=== PATIENT | female | born 1940 | race Caucasian/White ===

== ENCOUNTER 2019-07-01 03:45 | Inpatient (IN) | payer MEDICARE, OTHER, SELFPAY ==
[2019-07-01] VITALS (129 sets, daily range): BP systolic 80–151; BP diastolic 38–87; PULSE 86–139; RESP 4–33; TEMP 36.6–37.2; O2SAT 90–99; BMI 15.3
--- NOTE | 2019-07-01 03:59 | ED_ITS ---
Entered by Mela Ayala, acting as scribe for Arabella Stoddard HPI - SOB/Dyspnea General: Chief Complaint: Shortness of Breath/Dyspnea Stated Complaint: RESP DISTRESS Time Seen by Provider: 07/01/19 03:57 Source: patient and EMS Mode of arrival: EMS History of Present Illness: HPI Narrative: 78 y/o female presents to the ED with complaint of SOB and difficulty breathing. Pt told EMS she woke up suddenly and was unable to breathe. She has a home health aid that checks on her every so often since she lives at home alone. Pt normally wears 3L home O2. EMS reports mild wheezing and hx of COPD. MD elicited complaint: shortness of breath Pertinent past history: COPD Severity: similar to previous episodes Exacerbating factors: movement and talking Known history of: COPD Associated symptoms: Deny abdominal pain, chest pain, diaphoresis, dizziness, extremity pain, fever(s), nausea, orthopnea, palpitations, polydipsia, syncope or vomiting Treatment prior to arrival: oxygen Related Data: Home oxygen amount: 3 liters Review of Systems General: Reports: other (negative unless marked) Const: Denies: fever, chills, body aches, fatigue, malaise or diaphoresis Eyes: Denies: change in vision or blurry vision ENMT: Denies: throat pain, painful swallowing, hoarseness, ear pain, ear discharge, Change in hearing or nasal discharge Card: Denies: chest pain, palpitations, irregular heart rhythm, syncope, pre- syncope, shortness of breath on exertion or shortness of breath when lying down GI: Denies: abdominal pain, nausea, vomiting, vomiting blood, coffee grounds in vomit, diarrhea, constipation, cramping, blood in stool or black tarry stool : Denies: flank pain, painful urination, urinary frequency, urinary urgency, decreased urine ouput, urinary incontinence or blood in urine Musc: Denies: neck pain, back pain, extremity pain, extremity swelling, joint pain, joint swelling, joint warmth or joint stiffness Skin/Breast: Denies: rash, skin tenderness or yellow skin Neuro: Denies: headache, numbness in extremities, weakness in extremities, changes in sensation, lack of coordination, difficulty walking, dizziness, vertigo or confusion Endo: Denies: excessive thirst, tired all the time, cold intolerance, excessive sweating, flushing or hot flashes Hong/Lymph: Denies: easy bruising, easy bleeding, petechiae or enlarged lymph nodes All/Imm: Denies: hives, throat swelling, tongue swelling, facial swelling or acute wheezing PFSH ED PFSH: Social History Smoking and tobacco status: current every day smoker Physical Exam Const: EXAM LIMITATIONS: no altered mental status GENERAL APPEARANCE: cooperative, well kempt and well developed ORIENTATION/CONSCIOUSNESS: Yes awake HENMT: COMMON NORMALS: normocephalic, head/scalp atraumatic, hearing grossly normal bilaterally, external ears normal, EAC's normal, external nose normal and moist oral mucous membranes HEAD & SCALP: normal to inspection, normocephalic and atraumatic FACE & SINUS: normal facial exam and face symmetric NOSE: external nose normal and nares normal EXTERNAL EAR: Yes external ears normal EXTERNAL AUDITORY CANAL: EAC's normal MOUTH: oral and palatal mucosa normal and tongue normal Eye: COMMON NORMALS: PERRL, EOMs intact bilaterally, conjunctivae normal and no scleral icterus GENERAL EYE: normal appearance of both eyes and normal light reflex CONJUNCTIVA: Yes conjunctivae normal SCLERA: sclerae normal CORNEA: Yes corneas normal PUPIL: Yes PERRL DIRECT OPHTHALMOSCOPY: Yes normal light reflex Neck/C-Spine: COMMON NORMALS: full ROM, no lymphadenopathy, supple, no meningeal signs and no JVD GENERAL: Yes normal visual inspection and Yes trachea midline CERVICAL SPINE: Yes cervical ROM normal Chest: COMMONS NORMALS: inspection of chest normal and palpation of chest normal Cardio: COMMON NORMALS: no JVD, regular rate, regular rhythm, S1 normal heart sound, S2 normal heart sound, no gallops, no clicks, no murmurs and no rub JUGULAR VENOUS DISTENTION: no JVD RATE: regular rate RHYTHM: regular rhythm HEART SOUNDS: S1 normal and S2 normal GI: COMMON NORMALS: soft to palpation, non-tender, no hepatosplenomegaly and no masses INSPECTION: Yes normal to inspection PALPATION: Yes soft and Yes no hepatosplenomegaly : COMMON NORMALS: Yes no CVA tenderness BLADDER/KIDNEY EXAM: Yes no CVA tenderness Back/Pelvis: COMMON NORMALS: no CVA tenderness, thoracic and lumbar spine normal to inspection, no thoracic nor lumbar tenderness and thoraco-lumbar ROM normal Extremity: COMMON NORMALS: normal to inspection, full ROM, normal capillary refill, no joint enlargement, no clubbing, cyanosis or edema and no calf tenderness Neuro: COMMON NORMALS: CN's II-XII intact bilaterally, moves all extremities, no focal motor deficits and no sensory deficits noted MENINGEAL SIGNS: Yes no meningeal signs Psych: COMMON NORMALS: mental status grossly normal, thought process normal, cooperative, affect normal, speech normal and activity/motor behavior normal APPEARANCE: Yes well kempt SPEECH: Yes normal speech THOUGHT PROCESS: normal thought process Skin: COMMON NORMALS: no rashes or lesions noted, skin turgor normal, no jaundice, no petechiae and no mottling GENERAL SKIN EXAM: no rashes or lesions noted and turgor normal Course Vital Signs: Vital signs: Vital Signs Temperature 99.0 F 07/01/19 03:47 Pulse Rate 128 H 07/01/19 05:00 Respiratory Rate 24 H 07/01/19 03:47 Blood Pressure 151/79 07/01/19 03:47 Pulse Oximetry 99 07/01/19 05:00 MDM - SOB/Dyspnea MDM Narrative: Medical decision making narrative: The case was reviewed with Dr. Whittington and she will admit for combination of COPD and congestive heart failure exacerbations. Lab Data: Labs: Lab Results 07/01/19 07/01/19 07/01/19 Range/Units 03:30 03:30 03:30 WBC 7.7 (4.0-10.0) 10^3/ uL RBC 2.98 L (4.1-5.3) 10^6/u L Hgb 9.7 L (11.5-15.3) g/dL Hct 30.3 L (37.0-47.0) % MCV 101.7 H (81-99) fL MCH 32.6 (28.0-34.0) pg MCHC 32.0 (30.0-36.0) g/dL RDW 11.8 L (12.1-15.1) % Plt Count 238 (130-400) 10^3/c mm MPV 9.5 (7.4-10.4) fL Neut % (Auto) 83.7 % Lymph % (Auto) 7.0 % [place] % (Auto) 5.9 % Eos % (Auto) 2.8 % Baso % (Auto) 0.3 % Neut # (Auto) 6.5 (1.8-7.7) 10^3/u L Lymph # (Auto) 0.5 L (0.8-4.8) 10^3/u L [place] # (Auto) 0.5 (0.2-0.9) 10^3/u L Eos # (Auto) 0.2 (0.0-0.8) 10^3/u L Baso # (Auto) 0.0 (0.0-0.1) 10^3/u L Nucleated RBC % (a uto) 0 % Nucleated RBCs # 0.0 /100WBC PT 14.60 H (10.5-13.3) SECO NDS INR 1.30 H (0.8-1.2) Specimen Type Sample Site ABG pH (7.35-7.45) ABG pCO2 (35-45) mmHg ABG pO2 (80.0-100.0) mmH g ABG HCO3 (22-26) mmol/L ABG Base Excess (-2.0-2.0) mmol/ L Cedrick Test Hematocrit (37-47) % O2 Delivery Device O2 Liters/Min % Full Service Supervisor ID Sodium 139 (136-145) mmol/L Potassium 5.0 (3.5-5.1) mmol/L Chloride 99 (98-107) mmol/L Carbon Dioxide 30 H (22-29) mmol/L Anion Gap 15.0 (5-19) BUN 12 (8-23) mg/dL Creatinine 1.4 H (0.5-0.9) mg/dL Glucose 219 H (65-115) mg/dL Lactic Acid (0.5-2.2) mmol/L Calcium 9.5 (8.5-10.5) mg/dL Magnesium 1.4 L (1.7-2.3) mg/dL Total Bilirubin 0.3 (0.15-1.2) mg/dL AST 12 (0-32) U/L ALT 8 (0-33) U/L Alkaline Phosphata se 88 (35-105) IU/L Troponin T Baselin e (0-10) ng/mL Troponin T 120 Min gabriele (0-10) ng/mL Delta Troponin T (0-10) ABS# NT-Pro-B Natriuret Pep 1132 H (0-450) pg/mL Total Protein 8.0 (6.6-8.7) g/dL Albumin 3.8 (3.5-5.2) g/dL Globulin 4.2 (1.3-4.6) g/dL Influenza Type A A g (Negative) POC Influenza B Ag (Negative) 07/01/19 07/01/19 07/01/19 Range/Units 03:30 04:40 04:50 WBC (4.0-10.0) 10^3/ uL RBC (4.1-5.3) 10^6/u L Hgb (11.5-15.3) g/dL Hct (37.0-47.0) % MCV (81-99) fL MCH (28.0-34.0) pg MCHC (30.0-36.0) g/dL RDW (12.1-15.1) % Plt Count (130-400) 10^3/c mm MPV (7.4-10.4) fL Neut % (Auto) % Lymph % (Auto) % [place] % (Auto) % Eos % (Auto) % Baso % (Auto) % Neut # (Auto) (1.8-7.7) 10^3/u L Lymph # (Auto) (0.8-4.8) 10^3/u L [place] # (Auto) (0.2-0.9) 10^3/u L Eos # (Auto) (0.0-0.8) 10^3/u L Baso # (Auto) (0.0-0.1) 10^3/u L Nucleated RBC % (a uto) % Nucleated RBCs # /100WBC PT (10.5-13.3) SECO NDS INR (0.8-1.2) Specimen Type Arterial Sample Site Radial, right ABG pH 7.36 (7.35-7.45) ABG pCO2 50.2 H (35-45) mmHg ABG pO2 73.2 L (80.0-100.0) mmH g ABG HCO3 28.6 H (22-26) mmol/L ABG Base Excess 2.6 H (-2.0-2.0) mmol/ L Cedrick Test Pos Hematocrit 28.8 L (37-47) % O2 Delivery Device Nc O2 Liters/Min 3.0 % Full Service Supervisor ID [email or web address] Sodium (136-145) mmol/L Potassium (3.5-5.1) mmol/L Chloride (98-107) mmol/L Carbon Dioxide (22-29) mmol/L Anion Gap (5-19) BUN (8-23) mg/dL Creatinine (0.5-0.9) mg/dL Glucose (65-115) mg/dL Lactic Acid (0.5-2.2) mmol/L Calcium (8.5-10.5) mg/dL Magnesium (1.7-2.3) mg/dL Total Bilirubin (0.15-1.2) mg/dL AST (0-32) U/L ALT (0-33) U/L Alkaline Phosphata se (35-105) IU/L Troponin T Baselin e 16 H (0-10) ng/mL Troponin T 120 Min gabriele (0-10) ng/mL Delta Troponin T (0-10) ABS# NT-Pro-B Natriuret Pep (0-450) pg/mL Total Protein (6.6-8.7) g/dL Albumin (3.5-5.2) g/dL Globulin (1.3-4.6) g/dL Influenza Type A A g Negative (Negative) POC Influenza B Ag Negative (Negative) 07/01/19 07/01/19 Range/Units 04:59 05:42 WBC (4.0-10.0) 10^3/ uL RBC (4.1-5.3) 10^6/u L Hgb (11.5-15.3) g/dL Hct (37.0-47.0) % MCV (81-99) fL MCH (28.0-34.0) pg MCHC (30.0-36.0) g/dL RDW (12.1-15.1) % Plt Count (130-400) 10^3/c mm MPV (7.4-10.4) fL Neut % (Auto) % Lymph % (Auto) % [place]ham % (Auto) % Eos % (Auto) % Baso % (Auto) % Neut # (Auto) (1.8-7.7) 10^3/u L Lymph # (Auto) (0.8-4.8) 10^3/u L [place] # (Auto) (0.2-0.9) 10^3/u L Eos # (Auto) (0.0-0.8) 10^3/u L Baso # (Auto) (0.0-0.1) 10^3/u L Nucleated RBC % (a uto) % Nucleated RBCs # /100WBC PT (10.5-13.3) SECO NDS INR (0.8-1.2) Specimen Type Sample Site ABG pH (7.35-7.45) ABG pCO2 (35-45) mmHg ABG pO2 (80.0-100.0) mmH g ABG HCO3 (22-26) mmol/L ABG Base Excess (-2.0-2.0) mmol/ L Cedrick Test Hematocrit (37-47) % O2 Delivery Device O2 Liters/Min % Full Service Supervisor ID Sodium (136-145) mmol/L Potassium (3.5-5.1) mmol/L Chloride (98-107) mmol/L Carbon Dioxide (22-29) mmol/L Anion Gap (5-19) BUN (8-23) mg/dL Creatinine (0.5-0.9) mg/dL Glucose (65-115) mg/dL Lactic Acid 1.3 (0.5-2.2) mmol/L Calcium (8.5-10.5) mg/dL Magnesium (1.7-2.3) mg/dL Total Bilirubin (0.15-1.2) mg/dL AST (0-32) U/L ALT (0-33) U/L Alkaline Phosphata se (35-105) IU/L Troponin T Baselin e (0-10) ng/mL Troponin T 120 Min gabriele 14.32 H (0-10) ng/mL Delta Troponin T -1.68 L (0-10) ABS# NT-Pro-B Natriuret Pep (0-450) pg/mL Total Protein (6.6-8.7) g/dL Albumin (3.5-5.2) g/dL Globulin (1.3-4.6) g/dL Influenza Type A A g (Negative) POC Influenza B Ag (Negative) Discharge Plan Discharge Patient Disposition: Admitted As Inpatient Admit Provider: Yumiko Mooney Clinical Impression: Acute exacerbation of chronic obstructive airways disease Congestive heart failure Qualifiers: Heart failure type: unspecified Heart failure chronicity: acute on chronic Qualified Code(s): I50.9 - Heart failure, unspecified Condition: Stable Referrals: Hayden Horne MD [Family Provider] - Coding Level of Care Code ED Audit Tech for Chg Fwd Exam Comprehensive The documentation recorded by the Jamie lomas Ashley, accurately reflects the service I personally performed and the decisions made by Richi shea Eli N Jul 01, 2019 03:45
--- NOTE | 2019-07-01 04:02 | XR_ITS ---
WS: [id number] Portable AP upright chest, 07/01/2019 Clinical Data: cough Comparison: Portable chest, 05/02/2018. Findings: No nodules, masses or effusions are seen. The heart is normal. The pulmonary vascularity is not increased. No pneumonia or pneumothorax is seen. There is a slight dextroscoliosis. The aortic a rch and descending aorta show calcification and tortuosity. Monitor leads on the chest wall. There is a catheter overlying the upper central abdomen. XR/XR chest 1V portable [id number] Impression: Atherosclerosis.
[2019-07-01] MEDS: ondansetron 2 mg/ML SDV 2 mL 4 MG IVP (04:15)
[2019-07-01 04:18] LABS: Basophils % 0.3 %; Eosinophils # 0.2 10^3/uL (0.0-0.8); Eosinophils % 2.8 %; Hematocrit 30.3 % (37.0-47.0); Hemoglobin 9.7 g/dL (11.5-15.3); Lymphocytes # 0.5 10^3/uL (0.8-4.8); Mean Corpuscular Hemoglobin 32.6 pg (28.0-34.0); Mean Corpuscular Volume 101.7 fL (81-99); Mean Platelet Volume 9.5 fL (7.4-10.4); Monocytes # 0.5 10^3/uL (0.2-0.9); Monocytes % 5.9 %; Neutrophils # 6.5 10^3/uL (1.8-7.7); Neutrophils % 83.7 %; Nucleated Red Blood Cells % 0 %; Platelet Count 238 10^3/cmm (130-400); Red Blood Count 2.98 10^6/uL (4.1-5.3); Red Cell Distribution Width 11.8 % (12.1-15.1); White Blood Count 7.7 10^3/uL (4.0-10.0)
[2019-07-01 04:32] LABS: Troponin(5th) Baseline 16 ng/mL (0-10)
[2019-07-01 04:40] LABS: Alanine Aminotransferase 8 U/L (0-33); Albumin Level 3.8 g/dL (3.5-5.2); Alkaline Phosphatase 88 IU/L (35-105); Aspartate Amino Transferase 12 U/L (0-32); Blood Urea Nitrogen 12 mg/dL (8-23); Calcium 9.5 mg/dL (8.5-10.5); Carbon Dioxide 30 mmol/L (22-29); Chloride 99 mmol/L (98-107); Globulin 4.2 g/dL (1.3-4.6); Glucose 219 mg/dL (65-115); Magnesium 1.4 mg/dL (1.7-2.3); NT Pro B Type Natriuretic Pept 1132 pg/mL (0-450); Sodium 139 mmol/L (136-145); Total Bilirubin 0.3 mg/dL (0.15-1.2)
[2019-07-01 04:57] LABS: ABG PCO2 50.2 mmHg (35-45); ABG PH Result 7.36 (7.35-7.45); Arterial Blood Gas Hematocrit 28.8 % (37-47); Base Excess ABG 2.6 mmol/L (-2.0-2.0); Blood Gas Allen Test Pos; Blood Gas Sample Site Radial, right; Blood Gas Sample Type Arterial; HCO3 ABG 28.6 mmol/L (22-26); Oxygen Device NC; PO2 ABG 73.2 mmHg (80.0-100.0)
[2019-07-01 05:19] LABS: Lactic Sepsis W/Reflex 1.3 mmol/L (0.5-2.2)
--- NOTE | 2019-07-01 06:03 | ECG_ITS ---
Measurements Intervals [place] Rate: 118 P: 82 PA: 169 QRS: 74 QRSD: 88 T: 80 QT: 314 QTc: 441 SINUS TACHYCARDIA WITH OCCASIONAL ECTOPIC PREMATURE COMPLEXES ABNORMAL RHYTHM ECG Compared to ECG 05/02/2018 13:28:49 Myocardial infarct finding no longer present Electronically Signed On 07-01-2019 21:25:26 SEED AND FERTILIZER SPECIALIST by Keerthi Jensen M.D. [id number]
[2019-07-01] MEDS: FUROsemide 10 mg/mL SDV 4mL 40 MG IVP (06:15)
[2019-07-01] MEDS: magnesium sulfate premix 2 GM/50 ML PIGGYBACK IV (06:15)
[2019-07-01] MEDS: nitroglycerin 1 gm/inch oint Pkt 1 INCH TOPICAL (06:20)
[2019-07-01 06:29] LABS: Influenza A by IFA Negative (Negative); Influenza B by IFA Negative (Negative)
[2019-07-01 06:36] LABS: Troponin 5 2HR 14.32 ng/mL (0-10)
[2019-07-01 06:38] LABS: Troponin 5 2HR Delta -1.68 ABS# (0-10)
--- NOTE | 2019-07-01 09:48 | P.HP_ITS ---
Providers/Chief Complaint Admitting Physician: Leatha Salmon MD Chief Complaint: Worsening SOB History of Present Illness Shanita Canales is a 78 year old female with PMHx of Oxygen-dependent COPD, HTN, Chronic systolic CHF, CKD stage 2-3, IDDM type II, Pancreatic insufficiency, Chronic smoker, presents for evaluation of acutely worsening SOB x 2 days along with increased productive cough with clear sputum. She has a baseline oxygen r equirement of 3 L NC which she reports compliance with. She is a chronic smoker though has cut down considerably to 1 cig/day. She denies fever/chills, sick contacts, nausea/vomiting, chest pain/tightness. She has chronic abdominal pain and diarrhea which she attributes to hx of gallstone pancreatitis with intervention and is on pancreatic enzymes. She has a prior hx of intubation in 2018. Workup in ED shows no leukocytosis, mild anemia with hg of 9.7, Cr of 1.4, BG of 219, ABG showing mild hypercapnia and hypoxia, BNP-1132, Mg-1.4, lactic acid-1.3. CXR report is pending but per my review is unremarkable. She received IV magnesium replacement, 40 mg of IV Lasix, NS while in ED. Despite elevated BNP she does not appear clinically fluid overloaded though this could also be secondary to slight increase in renal function as well. She appears slightly dehydrated during my assessment in ED, is tachycardic and on 2 L NC with saturation of 97%, in no apparent distress, normotensive. She is being admitted for further management of acute COPD exacerbation and mild dehydration. Review of Systems Const: Denies: fever, chills, change in appetite or fatigue Eyes: Denies: change in vision ENMT: Denies: painful swallowing or dry mouth Card: Reports: shortness of breath on exertion; Denies: chest pain, swelling of feet/ankles or lightheadedness Resp: Reports: productive cough (clear sputum, scant); Denies: shortness of breath or coughing up blood GI: Reports: abdominal pain (chronic) and diarrhea (chronic); Denies: nausea, vomiting, vomiting blood or blood in stool : Reports: painful urination and urinary frequency; Denies: difficulty urinating Musc: Denies: back pain Skin/Breast: Denies: rash Neuro: Denies: numbness in extremities, weakness in extremities, difficulty walking or frequent falls Psych: Denies: anxiety Medications/Allergies Home Medications Medication Instructions Recorded Confirmed Last Taken Type Novolog PenFill U-100 Insulin See Rx Instructions .ROUTE .COMPLEX 07/01/19 07/01/19 Unknown History albuterol sulfate [ProAir HFA] 1 - 2 puff INHALATION Q4H PRN 07/01/19 07/01/19 Unknown History amlodipine [Norvasc] 10 mg PO DAILY 07/01/19 07/01/19 06/30/19 History buspirone 10 mg PO TID PRN 07/01/19 07/01/19 06/30/19 History carvedilol 6.25 mg PO BID 07/01/19 07/01/19 06/30/19 History cholecalciferol (vitamin D3) 50,000 unit PO Q7D 07/01/19 07/01/19 Unknown History clopidogrel [Plavix] 75 mg PO DAILY 07/01/19 07/01/19 06/30/19 History hydrocodone-acetaminophen [[place]] 1 tab PO QID PRN 07/01/19 07/01/19 06/30/19 History insulin glargine [Lantus Solostar 6 unit SUBCUT QPM 07/01/19 07/01/19 Unknown History U-100 Insulin] [id number] [Pancreaze] 1 cap PO TID 07/01/19 07/01/19 Unknown History loperamide [Imodium A-D] 2 mg PO DIRECTED 07/01/19 07/01/19 Unknown History losartan 100 mg PO DAILY 07/01/19 07/01/19 Unknown History mirtazapine 30 mg PO BEDTIME 07/01/19 07/01/19 06/30/19 History Allergies Allergy/AdvReac Type Severity Reaction Status Date / Time HATTIE Inhibitors Allergy Mild Unknown Verified 07/01/19 03:59 Penicillins Allergy ALGY-Swell Verified 07/01/19 03:59 Lip/Tongue/Throat PFSH Acute PFSH: Medical History Chronic anemia Chronic back pain CKD (chronic kidney disease) stage 2, GFR 60-89 ml/min Congestive heart failure COPD (chronic obstructive pulmonary disease) oxygen dependent, 3 L at baseline HTN (hypertension) Pancreatic insufficiency Surgical History History of tonsillectomy Hx of appendectomy Status post surgical amputation of finger of left hand Family History Mother Stroke Social History (Updated 07/01/19 @ 09:52 by Leatha Salmon MD) Smoking and tobacco status: current every day smoker cigarettes Number of cigarettes per day: 1-5 Alcohol intake: never Substance/Drug Use: never Lives independently: Yes Vitals/I&O/Wt Last Vital Signs Temp 99.0 F 07/01/19 08:25 Pulse 113 H 07/01/19 08:53 Resp 33 H 07/01/19 08:35 BP 111/62 07/01/19 08:35 Pulse Ox 93 07/01/19 08:53 Weight last 48 hrs Weight 43.091 kg Physical Exam Const: COMMON NORMALS: no apparent distress and oriented x3 GENERAL APPEARANCE: cooperative and comfortable ORIENTATION/CONSCIOUSNESS: Yes awake HENMT: COMMON NORMALS: normocephalic, head/scalp atraumatic, hearing grossly normal bilaterally and moist oral mucous membranes HEAD & SCALP: normocephalic and atraumatic Eye: COMMON NORMALS: PERRL, EOMs intact bilaterally and conjunctivae normal CONJUNCTIVA: Yes conjunctivae normal PUPIL: Yes PERRL Neck/C-Spine: COMMON NORMALS: full ROM GENERAL: Yes normal visual inspection and Yes trachea midline Resp: COMMON NORMALS: normal respiratory effort, no retractions, no use of accessory muscles and clear to auscultation bilaterally EFFORT & INSPECTION: Yes able to speak in complete sentences, Yes symmetric chest movement and No tachypneic AUSCULTATION: clear to auscultation bilaterally Cardio: COMMON NORMALS: regular rate, regular rhythm, S1 normal heart sound, S2 normal heart sound and no murmurs RATE: regular rate RHYTHM: regular rhythm HEART SOUNDS: S1 normal and S2 normal GI: COMMON NORMALS: normal to inspection, nondistended, normoactive bowel sounds, soft to palpation and non-tender PALPATION: Yes soft Extremity: COMMON NORMALS: normal to inspection, full ROM and no clubbing, cyanosis or edema; negative for no pedal edema Neuro: COMMON NORMALS: oriented x3, moves all extremities, no focal motor deficits, no sensory deficits noted and gait normal Psych: COMMON NORMALS: mental status grossly normal, thought process normal, cooperative, affect normal and speech normal SPEECH: Yes normal speech THOUGHT PROCESS: normal thought process Skin: COMMON NORMALS: no rashes or lesions noted, no jaundice, no petechiae and no mottling GENERAL SKIN EXAM: no rashes or lesions noted Data : 07/01/19 03:30 07/01/19 03:30 Micro: Microbiology 07/01/19 04:54 Blood Culture - Preliminary Blood SPECIMEN COLLECTED 07/01/19 04:59 Blood Culture - Preliminary Blood SPECIMEN COLLECTED A&P Assessment and plan (1) Acute exacerbation of chronic obstructive airways disease: -mild acute COPD exacerbation as evidenced by increased productive cough, worsening SOB -baseline oxygen dependent, 3 L -noted ABG with mild hypercapnia and hypoxia -monitor respiratory status -no leukocytosis, afebrile, lactic acid wnl (1.3) -Neb treatments, will use Xopenex due to tachycardia -supplemental oxygen as needed -empiric doxycycline -CXR done, report pending, appears unremarkable per my review -monitor vital signs Status: Acute Code(s): J44.1 - Chronic obstructive pulmonary disease with (acute) exacerbation (2) Congestive heart failure: -noted BNP elevation (1132) but no clinical evidence of fluid overload (no increased LE edema or abdominal distention, no mirtha effusion or increased pulmonary vascular congestion on CXR) -Echo (03/2018): EF=40%, mild concentric LVH, diffuse hypokinesis, trace TR -received 40 mg dose of IV Lasix in ED, would hold off on further diuresis at this time Status: Acute Qualifiers: Heart failure chronicity: chronic Heart failure type: systolic Qualified Code(s): I50.22 - Chronic systolic (congestive) heart failure Code(s): I50.9 - Heart failure, unspecified (3) CKD (chronic kidney disease) stage 2, GFR 60-89 ml/min: -has known CKD stage 2-3, baseline Cr is around 1 but has been as high as 2.8 in the past -continue to monitor renal function -seems a little dehydrated clinically so will give 500 mL NS bolus x 1 and monitor response -avoid nephrotoxins, renally dose meds -hold losartan pending improved Cr Status: Acute Code(s): N18.2 - Chronic kidney disease, stage 2 (mild) (4) Chronic anemia: -hx of chronic macrocytic anemia; baseline Hg is around 10-11 -check folate, B12 -continue to monitor H/H Status: Acute Code(s): D64.9 - Anemia, unspecified (5) HTN (hypertension): -has known hx of HTN -hemodynamically stable currently -continue to monitor vital signs -resume oral antihypertensives Status: Acute Qualifiers: Hypertension type: essential hypertension Qualified Code(s): I10 - Essential (primary) hypertension Code(s): I10 - Essential (primary) hypertension (6) Chronic back pain: -has chronic back pain secondary to OA -resume pain meds Status: Acute Qualifiers: Back pain location: low back pain Back pain laterality: unspecified Sciatica presence: unspecified whether sciatica present Qualified Code(s): M54.5 - Low back pain; G89.29 - Other chronic pain Code(s): M54.9 - Dorsalgia, unspecified; G89.29 - Other chronic pain Additional A&P Information -Pancreatic insufficiency, has hx of gallstone pancreatitis s/p stenting; resume pancreatic enzymes; had chronic abdominal pain and diarrhea as a result -chronic smoker; down to 1 cig/day -IDDM type II; check A1c, accucheks, ISS, low dose Lantus; hypoglycemia precautions, consistent carb diet -DVT ppx with heparin -fall precautions -Dispo: home with continued HH services ([facility]) -Code status: DNR/DNI -ICU admission as floor overflow Attestations Medical Necessity Statement*: Shanita Canales's hospital stay will require greater than 2 midnights for management of acute COPD exacerbation and mild dehydration. Time Spent in Patient Care: Greater than 35 minutes (>than 50% of time spent in counselling and/or direct pt care on unit) . Coding Level of Care Code Acute Dispensary Technician for Yaz Fwnaila Diagnoses Acute exacerbation of chronic obstructive airways disease J44.1 Congestive heart failure I50.22 Heart failure chronicity: chronic Heart failure type: systolic CKD (chronic kidney disease) stage 2, GFR 60-89 ml/min N18.2 Chronic anemia D64.9 HTN (hypertension) I10 Hypertension type: essential hypertension Chronic back pain M54.5; G89.29 Back pain location: low back pain Back pain laterality: unspecified Sciatica presence: unspecified whether sciatica present
--- NOTE | 2019-07-01 10:03 | ECG_ITS ---
Measurements Intervals [place] Rate: 122 P: 78 MO: 165 QRS: 65 QRSD: 90 T: 74 QT: 315 QTc: 449 SINUS TACHYCARDIA WITH OCCASIONAL ECTOPIC PREMATURE COMPLEXES SEPTAL MYOCARDIAL INFARCTION [40+ ms Q WAVE IN V1/V2], OF INDETERMINATE AGE Compared to ECG 05/02/2018 13:28:49 No significant changes Electronically Signed On 07-02-2019 11:16:15 COPY EDITOR by Keerthi Jensen M.D. [id number]
[2019-07-01 10:09] LABS: Troponin 5 6HR 16.33 ng/mL (0-10); Troponin 5 6HR Delta 0.33 ng/L (0-12)
[2019-07-01] MEDS: sodium chloride 0.9% 500 ML IV (10:13)
[2019-07-01] MEDS: amlodipine 10 mg Tablet PO (10:13)
[2019-07-01] MEDS: predniSONE 20 mg Tablet 40 MG PO (10:14)
[2019-07-01] MEDS: clopidogrel 75 mg Tablet PO (10:14)
[2019-07-01] MEDS: HYDROcodone-acetaminophen 10-325 mg Tablet 1 TAB PO ×3 (10:14→21:24)
[2019-07-01] MEDS: heparin 5,000 unit/mL INJ 1 mL 5000 UNIT SUBCUT ×2 (10:14→21:25)
--- NOTE | 2019-07-01 11:27 | PC.NURSE ---
Blood glucose checked prior to lunch. Resulted as 470. Physician notified at this time, verbal order to give the 14 units per protocol.
[2019-07-01] MEDS: lipase-protease-amylase Capsule 1 EACH PO ×2 (11:38→17:40)
[2019-07-01 12:36] LABS: Glucose Point of Care 470 mg/dL (70-110)
[2019-07-01] MEDS: BuSPIRONE 10 mg Tablet PO ×2 (14:16→21:24)
[2019-07-01 15:02] LABS: Glucose Point of Care 406 mg/dL (70-110)
[2019-07-01 16:12] LABS: Bilirubin Urine Neg (NEGATIVE); Blood Urine Neg (Negative); Glucose Urine UA 4+ (Normal); Ketones Urine Negative (Negative); Leukocyte Esterase Urine Negative (Negative); Nitrate Urine Negative (Negative); Protein Urine Neg (Negative); Urine Appearance Clear (CLEAR); Urine Color Straw (Yellow); Urobilinogen Urine Norm (Negative); pH Urine 5 (5-7)
[2019-07-01] MEDS: guaiFENesin 600 mg Tablet PO (17:18)
[2019-07-01] MEDS: carvedilol 6.25 mg Tablet PO (17:18)
[2019-07-01] MEDS: doxycycline 100 mg Tablet PO (17:18)
[2019-07-01 17:19] LABS: Glucose Point of Care 385 mg/dL (70-110)
[2019-07-01 17:49] LABS: Add Urine Culture? No; Bacteria Urine TRACE; Squamous Epithelial Cell Urine 0-4 (0-5)
[2019-07-01] MEDS: mirtazapine 30 mg Tablet PO (21:24)
[2019-07-01] MEDS: insulin glargine 100 units/1 mL 5 UNIT SUBCUT (21:24)
[2019-07-02] VITALS (27 sets, daily range): BP systolic 126–168; BP diastolic 55–77; PULSE 76–125; RESP 2–31; TEMP 36.6–36.7; O2SAT 86–100
[2019-07-02 05:14] LABS: Hematocrit 27.7 % (37.0-47.0); Lymphocytes # 0.7 10^3/uL (0.8-4.8); Lymphocytes % 9.7 %; Mean Corpuscular HGB Conc 32.5 g/dL (30.0-36.0); Mean Corpuscular Hemoglobin 33.3 pg (28.0-34.0); Mean Corpuscular Volume 102.6 fL (81-99); Mean Platelet Volume 9.8 fL (7.4-10.4); Monocytes # 0.5 10^3/uL (0.2-0.9); Monocytes % 6.5 %; Neutrophils # 6.4 10^3/uL (1.8-7.7); Neutrophils % 83.3 %; Nucleated Red Blood Cells % 0 %; Platelet Count 221 10^3/cmm (130-400); Red Cell Distribution Width 11.7 % (12.1-15.1); White Blood Count 7.7 10^3/uL (4.0-10.0)
[2019-07-02 05:35] LABS: Anion Gap 12.9 (5-19); Blood Urea Nitrogen 25 mg/dL (8-23); Calcium 8.9 mg/dL (8.5-10.5); Carbon Dioxide 30 mmol/L (22-29); Chloride 97 mmol/L (98-107); Glucose 185 mg/dL (65-115); Osmolality Calculated 282 mOsm/kg (285-295); Potassium 4.9 mmol/L (3.5-5.1); Sodium 135 mmol/L (136-145)
[2019-07-02 05:50] LABS: Vitamin B12 715 pg/mL (232-1245)
[2019-07-02 06:08] LABS: Estmated Average Glucose 154
[2019-07-02 07:37] LABS: Folate Level 6.1 ng/mL (4.8-37.3)
[2019-07-02] MEDS: doxycycline 100 mg Tablet PO ×2 (08:22→18:15)
[2019-07-02] MEDS: guaiFENesin 600 mg Tablet PO ×2 (08:22→18:15)
[2019-07-02] MEDS: HYDROcodone-acetaminophen 10-325 mg Tablet 1 TAB PO ×3 (08:23→23:27)
[2019-07-02] MEDS: carvedilol 6.25 mg Tablet PO ×2 (08:24→18:15)
[2019-07-02] MEDS: BuSPIRONE 10 mg Tablet PO ×3 (08:24→21:20)
[2019-07-02] MEDS: amlodipine 10 mg Tablet PO (08:24)
[2019-07-02] MEDS: clopidogrel 75 mg Tablet PO (08:24)
[2019-07-02] MEDS: lipase-protease-amylase Capsule 1 EACH PO ×3 (08:41→18:33)
[2019-07-02] MEDS: heparin 5,000 unit/mL INJ 1 mL 5000 UNIT SUBCUT ×2 (09:38→21:22)
--- NOTE | 2019-07-02 11:00 | PC.CHAP ---
Pastoral Care Encounter/Spiritual Assessment Type of Contact [] Declined private investigator surveillance visit [] Patient/Family/Request visit [] Outpatient visit [] Follow-up visit [] Physician referral [] Code/Alert [x] Routine visit [] Staff referral [] Actively dying [x] Patient sleeping [] Family support [] [] Out of room [] Palliative care [] [] Receiving care in room [] Pre-surgical visit [] Trauma [] Long length of stay [x] ICU visit [] Other: Relational/Emotional Strength [] Patient feels connected with others/family/visitors/staff [] Distress [] Loneliness/isolation [] Abandonment Spirituality of Patient [] Person of Rosario [] Attends Orthodox of their Rosario [] Believes in Prayer [] Reads Bible or Taoism materials [] There are Spiritual issues to be addressed Associate Veterinarian Interventions [] Prayer [] Active listening [] Non-anxious presence [] Spiritual/emotional support [] Crisis/trauma care [] Spiritual counseling [] Bereavement support [] Provided bereavement packet [] Provided Bible/devotional materials [] Provided toy/stuffed animal, coloring book to patient or family member [] Provided Communion [] Anointing/[place] [] Salvation [x] Completed spiritual assessment [] Other: Impact on Illness or Injury [] Angry [] Fearful [] Anxious [] Often cries [] Exhaustion [] Unable to work [] Unable to attend methodist [] Unable to walk/stand [] Unable to read [] Unable to drive [] Unable to eat/drink [] Unable to sleep [] Unable to be with family [] Patient intubated [] Other: Summary patient resting well . [place] did not disturb. Time spent with patient
--- NOTE | 2019-07-02 12:01 | P.PN_ITS ---
Subjective Subjective: Interval history: Patient seen and examined, family at bedside, seems to be in much better spirits, reports feeling better today. Has been on 3 L with saturation above 95%, will wean down to 2 L and monitor. No complaints currently. No acute overnight events reported. Has been able to get up and use a bedside commode without difficulty. [facility] Medications: Reviewed: Yes Medication Review Details: Active Medications Generic Name Dose Route Start Last Admin Trade Name Freq PRN Reason Stop Dose Admin Acetaminophen 650 mg 07/01/19 08:34 Tylenol PO Q6H PRN Mild/Mod Pain Or Temp >/= 101 Hydrocodone Bitart /Acetaminophen 1 tab 07/01/19 09:53 07/02/19 08:23 [place] 10-325 Mg PO 1 tab Q6H PRN Administration MODERATE PAIN Al Hydrox/Mg [place] x/Simethicone 15 ml 07/01/19 09:53 Maalox PO Q6H PRN INDIGESTION Amlodipine Besylat e 10 mg 07/01/19 10:00 07/02/19 08:24 Norvasc PO 10 mg DAILY IDALIA Administration Lipase/Protease/Am ylase 1 each 07/01/19 12:00 07/02/19 11:55 Zenpep PO 1 each TIDWM IDALIA Administration Benzocaine 1 each 07/01/19 09:59 Cepacol MUCOUS MEM Q2H PRN SORE THROAT Buspirone HCl 10 mg 07/01/19 15:00 07/02/19 08:24 Buspar PO 10 mg TID IDALIA Administration Carvedilol 6.25 mg 07/01/19 18:00 07/02/19 08:24 Coreg PO 6.25 mg BID IDALIA Administration Clopidogrel Bisulf ate 75 mg 07/01/19 10:00 07/02/19 08:24 Plavix PO 75 mg DAILY IDALIA Administration Dextrose 25 ml 07/01/19 09:53 D50w IVP ONCE PRN hypoglycemia prot ocol Protocol Dextrose 50 ml 07/01/19 09:53 D50w IVP PRN PRN hypoglycemia prot ocol Protocol Doxycycline Monohy drate 100 mg 07/01/19 18:00 07/02/19 08:22 Vibramycin PO 100 mg BID IDALIA Administration Protocol Glucagon 1 mg 07/01/19 09:53 Glucagen IM ONCE PRN Adult Acute Hypog lycemia Prot. Protocol Guaifenesin 600 mg 07/01/19 18:00 07/02/19 08:22 Mucinex PO 600 mg BID IDALIA Administration Heparin Sodium (Be ef Lung) 5,000 unit 07/01/19 10:00 07/02/19 09:38 Heparin SUBCUT 5,000 unit Q12H IDALIA Administration Dextrose 500 mls @ 100 mls /hr 07/01/19 09:53 D5w IV ONCE PRN Adult Acute Hypog lycemia Prot Protocol Insulin Aspart 0 unit 07/01/19 12:00 07/02/19 11:53 Novolog SUBCUT 6 unit WM&BEDTIME IDALIA Administration Protocol Insulin Glargine 5 unit 07/01/19 21:00 07/01/19 21:24 Lantus SUBCUT 5 unit BEDTIME IDALIA Administration Levalbuterol HCl 1.25 mg 07/01/19 09:58 Xopenex INHALATION Q4H.RESPIRATORY P RN SHORTNESS OF VICK TH Loperamide HCl 2 mg 07/01/19 09:53 Imodium Capsule PO QID PRN DIARRHEA Mirtazapine 30 mg 07/01/19 21:00 07/01/19 21:24 Remeron PO 30 mg BEDTIME IDALIA Administration Morphine Sulfate 2 mg 07/01/19 09:53 Morphine IVP Q4H PRN SEVERE PAIN Ondansetron HCl 4 mg 07/01/19 08:34 Zofran IVP Q6H PRN NAUSEA AND VOMITI NG HATTIE Inhibitors Allergy (Mild, Verified 07/01/19 03:59) Unknown Penicillins Allergy (Verified 07/01/19 03:59) ALGY-Swell Lip/Tongue/Throat Vitals/I&O/Wt Last Vital Signs Temp 97.9 F 07/02/19 04:00 Pulse 96 07/02/19 10:20 Resp 20 H 07/02/19 10:20 BP 158/68 07/02/19 10:00 Pulse Ox 90 07/02/19 10:20 07/01/19 07/02/19 07/02/19 22:59 06:59 14:59 Intake Total 540 / 780 Balance 540 / 780 Weight last 48 hrs Weight 42.229 kg Weight 43.091 kg Physical Exam Const: COMMON NORMALS: no apparent distress and oriented x3 GENERAL APPEARANCE: cooperative and comfortable ORIENTATION/CONSCIOUSNESS: Yes awake HENMT: COMMON NORMALS: normocephalic, head/scalp atraumatic, hearing grossly normal bilaterally and moist oral mucous membranes HEAD & SCALP: normocephalic and atraumatic Eye: COMMON NORMALS: PERRL, EOMs intact bilaterally and conjunctivae normal CONJUNCTIVA: Yes conjunctivae normal PUPIL: Yes PERRL Neck/C-Spine: COMMON NORMALS: full ROM GENERAL: Yes normal visual inspection and Yes trachea midline Resp: COMMON NORMALS: normal respiratory effort, no retractions, no use of accessory muscles and clear to auscultation bilaterally EFFORT & INSPECTION: Yes able to speak in complete sentences, Yes symmetric chest movement and No tachypneic AUSCULTATION: clear to auscultation bilaterally and diminished lung sounds bilateral Cardio: COMMON NORMALS: regular rate, regular rhythm, S1 normal heart sound, S2 normal heart sound and no murmurs RATE: regular rate RHYTHM: regular rhythm HEART SOUNDS: S1 normal and S2 normal GI: COMMON NORMALS: normal to inspection, nondistended, normoactive bowel sounds, soft to palpation and non-tender PALPATION: Yes soft Extremity: COMMON NORMALS: normal to inspection, full ROM and no clubbing, cyanosis or edema; negative for no pedal edema Neuro: COMMON NORMALS: oriented x3, moves all extremities, no focal motor deficits, no sensory deficits noted and gait normal Psych: COMMON NORMALS: mental status grossly normal, thought process normal, cooperative, affect normal and speech normal SPEECH: Yes normal speech THOUGHT PROCESS: normal thought process Skin: COMMON NORMALS: no rashes or lesions noted, no jaundice, no petechiae and no mottling GENERAL SKIN EXAM: no rashes or lesions noted Data : 07/02/19 04:30 07/02/19 04:30 Micro: Microbiology 07/01/19 04:54 Blood Culture - Preliminary Blood NEGATIVE TO DATE 07/01/19 04:59 Blood Culture - Preliminary Blood NEGATIVE TO DATE A&P Assessment and plan (1) Acute exacerbation of chronic obstructive airways disease: -mild acute COPD exacerbation as evidenced by increased productive cough, worsening SOB -baseline oxygen dependent, 3 L -noted ABG with mild hypercapnia and hypoxia -monitor respiratory status -no leukocytosis, afebrile, lactic acid wnl (1.3) -Neb treatments, will use Xopenex due to tachycardia -supplemental oxygen as needed -empiric doxycycline -CXR appears unremarkable per my review -VSS; continue to monitor Status: Acute Code(s): J44.1 - Chronic obstructive pulmonary disease with (acute) exacerbation (2) Congestive heart failure: -noted BNP elevation (1132) but no clinical evidence of fluid overload (no increased LE edema or abdominal distention, no mirtha effusion or increased pulmonary vascular congestion on CXR) -Echo (03/2018): EF=40%, mild concentric LVH, diffuse hypokinesis, trace TR -received 40 mg dose of IV Lasix in ED, would hold off on further diuresis at this time Status: Acute Qualifiers: Heart failure chronicity: chronic Heart failure type: systolic Qualified Code(s): I50.22 - Chronic systolic (congestive) heart failure Code(s): I50.9 - Heart failure, unspecified (3) CKD (chronic kidney disease) stage 2, GFR 60-89 ml/min: -has known CKD stage 2-3, baseline Cr is around 1 but has been as high as 2.8 in the past; now with superimposed QUEENIE -continue to monitor renal function; noted increase in BUN and Cr, start on gentle IVF hydration -seems a little dehydrated clinically so gave 500 mL NS bolus -avoid nephrotoxins, renally dose meds -hold losartan pending improved Cr Status: Acute Code(s): N18.2 - Chronic kidney disease, stage 2 (mild) (4) Chronic anemia: -hx of chronic macrocytic anemia; baseline Hg is around 10-11 -check folate, B12 -continue to monitor H/H Status: Acute Code(s): D64.9 - Anemia, unspecified (5) HTN (hypertension): -has known hx of HTN -hemodynamically stable currently -continue to monitor vital signs -continue oral antihypertensives Status: Acute Qualifiers: Hypertension type: essential hypertension Qualified Code(s): I10 - Essential (primary) hypertension Code(s): I10 - Essential (primary) hypertension (6) Chronic back pain: -has chronic back pain secondary to OA -resume pain meds Status: Acute Qualifiers: Back pain location: low back pain Back pain laterality: unspecified Sciatica presence: unspecified whether sciatica present Qualified Code(s): M54.5 - Low back pain; G89.29 - Other chronic pain Code(s): M54.9 - Dorsalgia, unspecified; G89.29 - Other chronic pain Additional A&P Information -Pancreatic insufficiency, has hx of gallstone pancreatitis s/p stenting; continue pancreatic enzymes; had chronic abdominal pain and diarrhea as a result -chronic smoker; down to 1 cig/day -IDDM type II; A1c-7.0, accucheks, ISS, low dose Lantus; hypoglycemia precautions, consistent carb diet -DVT ppx with heparin -fall precautions -Dispo: home with continued HH services ([place]) -Code status: DNR/DNI -transfer to floor once bed available Attestations Medical Necessity Statement*: Patient requires hospitalization for continued management of acute COPD exacerbation and QUEENIE. Time Spent in Patient Care: 16 - 35 minutes (>than 50% of time spent in counselling and/or direct pt care on unit) . 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
[2019-07-02] MEDS: morphine 4 mg/mL SDV 1 mL 2 MG IVP ×2 (14:08→21:21)
--- NOTE | 2019-07-02 15:45 | PC.NURSE ---
resting quietly. resp. unlabored. appears to be sleeping.
--- NOTE | 2019-07-02 16:53 | PC.RESP ---
Patient given Pulmonary Rehab/Smoking Cessation information.
--- NOTE | 2019-07-02 18:44 | PC.NURSE ---
C/O ABD. PAIN UNLIKE SHE HAD HAD IN THE PAST, THEN HAD SMALL FIRM B.M. x 2.
--- NOTE | 2019-07-02 18:45 | PC.NURSE ---
REPORT CALLED TO CSU
--- NOTE | 2019-07-02 20:25 | PC.NURSE ---
report called to [facility], pt taken to [facility] via wheelchair.
[2019-07-02 21:05] LABS: Glucose Point of Care 237 mg/dL (70-110)
[2019-07-02] MEDS: sodium chloride 0.9% 1,000 ML 75 ML IV (21:20)
[2019-07-02] MEDS: mirtazapine 30 mg Tablet PO (21:21)
[2019-07-02] MEDS: insulin glargine 100 units/1 mL 5 UNIT SUBCUT (21:21)
[2019-07-03] VITALS (9 sets, daily range): BP systolic 90–178; BP diastolic 50–80; PULSE 81–122; RESP 14–22; TEMP 36.7–37.4; O2SAT 90–94
[2019-07-03] MEDS: HYDROcodone-acetaminophen 10-325 mg Tablet 1 TAB PO ×3 (05:48→17:52)
--- NOTE | 2019-07-03 05:57 | PC.NURSE ---
PATIENT WAS GIVEN IV MORPHINE 0.5ML AT 2120, MEDICATION DID NOT SCAN, CHARGE NURSE AND PHARMACY NOTIFIED, MEDICATION PULLED AND WASTED AT 2118.
[2019-07-03 06:10] LABS: Anion Gap 15.3 (5-19); Blood Urea Nitrogen 25 mg/dL (8-23); Calcium 9.1 mg/dL (8.5-10.5); Carbon Dioxide 30 mmol/L (22-29); Chloride 96 mmol/L (98-107); Glucose 105 mg/dL (65-115); Osmolality Calculated 281 mOsm/kg (285-295); Potassium 4.3 mmol/L (3.5-5.1); Sodium 137 mmol/L (136-145)
[2019-07-03 06:54] LABS: Glucose Point of Care 138 mg/dL (70-110)
[2019-07-03] MEDS: guaiFENesin 600 mg Tablet PO ×2 (09:24→17:53)
[2019-07-03] MEDS: BuSPIRONE 10 mg Tablet PO ×3 (09:24→21:30)
[2019-07-03] MEDS: lipase-protease-amylase Capsule 1 EACH PO ×3 (09:24→17:56)
[2019-07-03] MEDS: carvedilol 6.25 mg Tablet PO (09:24)
[2019-07-03] MEDS: doxycycline 100 mg Tablet PO ×2 (09:24→17:53)
[2019-07-03] MEDS: clopidogrel 75 mg Tablet PO (09:24)
[2019-07-03] MEDS: amlodipine 10 mg Tablet PO (09:24)
[2019-07-03] MEDS: heparin 5,000 unit/mL INJ 1 mL 5000 UNIT SUBCUT ×2 (09:32→22:50)
[2019-07-03] MEDS: morphine 4 mg/mL SDV 1 mL 2 MG IVP ×2 (09:32→16:33)
--- NOTE | 2019-07-03 12:46 | XRR_ITS ---
PROCEDURE INFORMATION: Exam: XR Chest, 1 View Exam date and time: 07/03/2019 12:47 PM Age: 78 years old Clinical indication: Shortness of breath; Additional info: Copd/chf TECHNIQUE: Imaging protocol: XR of the chest Views: 1 view. COMPARISON: CR XR chest 1V portable [id number] 07/01/2019 4:31 AM FINDINGS: Lungs: Hyperinflation of the lungs with emphysematous changes noted bilaterally. Patchy left basilar opacities which may represent atelectasis or other infiltrates. Pleural space: No pleural effusion. No pneumothorax. Heart/Mediastinum: No cardiomegaly. Bones/joints: No acute fracture. XR/XR chest 1V portable [id number] IMPRESSION: Patchy left basilar opacities which may represent atelectasis or other infiltrates.
--- NOTE | 2019-07-03 13:11 | CTR_ITS ---
PROCEDURE INFORMATION: Exam: CT Abdomen And Pelvis Without Contrast Exam date and time: 07/03/2019 1:30 PM Age: 78 years old Clinical indication: Abdominal pain; Localized; Prior surgery; Surgery date: 6+ months; Surgery type: Appy; Patient HX: C/O lower abd pain w HX of anemia and ckd ii; Additional info: [place] TECHNIQUE: Imaging protocol: Computed tomography of the abdomen and pelvis without contrast. Total DLP: 458.91 mGy-cm Radiation optimization: All CT scans at this facility use at least one of these dose optimization techniques: automated exposure control; mA and/or kV adjustment per patient size (includes targeted exams where dose is matched to clinical indication); or iterative reconstruction. COMPARISON: CT Chest/Abdomen/Pelvis wo IV 03/08/2018 7:06 PM FINDINGS: Lungs: Patchy ground-glass nodular opacities in the lower lobes which may be seen with atelectasis or other infectious infiltrate. Liver: No mass. Gallbladder and bile ducts: Gallbladder is distended. The gallbladder is distended. Pancreas: There is a stent extending from the duodenum into the pancreatic duct. Multiple pancreatic calcifications consistent with chronic pancreatitis. Spleen: No splenomegaly. Adrenals: No mass. Kidneys and ureters: Nonobstructing renal calculi. No hydronephrosis. Stomach and bowel: No obstruction. No mucosal thickening. Appendix: The appendix is not identified. No focal inflammatory changes in the right lower quadrant. Intraperitoneal space: No free air. No significant fluid collection. Vasculature: No abdominal aortic aneurysm. Lymph nodes: No enlarged lymph nodes. Bladder: Unremarkable as visualized. Reproductive: Calcified uterine fibroids. Bones/joints: Multilevel degenerative changes. Soft tissues: Unremarkable. CT/CT abdomen pelvis wo con [id number] IMPRESSION: 1. Patchy ground-glass nodular opacities in the lower lobes which may be seen with atelectasis or other infectious infiltrate. 2. Nonspecific gallbladder distention. No definite wall thickening. No gallstones. 3. Chronic pancreatitis with stent noted in the pancreatic duct similar to prior exam. Radiation Dose CTDIVOL = (mGy): DLP = 458.91 (mGy-cm)
[2019-07-03 13:30] LABS: Procalcitonin 0.23 ng/mL (0-0.5)
[2019-07-03 13:31] LABS: Basophils % 0.1 %; Eosinophils # 0.1 10^3/uL (0.0-0.8); Eosinophils % 0.7 %; Hematocrit 31.8 % (37.0-47.0); Lymphocytes % 14.6 %; Mean Corpuscular HGB Conc 31.4 g/dL (30.0-36.0); Mean Corpuscular Hemoglobin 31.6 pg (28.0-34.0); Mean Corpuscular Volume 100.6 fL (81-99); Mean Platelet Volume 10.2 fL (7.4-10.4); Monocytes # 0.4 10^3/uL (0.2-0.9); Monocytes % 5.4 %; Neutrophils # 5.6 10^3/uL (1.8-7.7); Neutrophils % 78.8 %; Nucleated Red Blood Cells % 0 %; Platelet Count 246 10^3/cmm (130-400); Red Blood Count 3.16 10^6/uL (4.1-5.3); Red Cell Distribution Width 11.9 % (12.1-15.1); White Blood Count 7.1 10^3/uL (4.0-10.0)
[2019-07-03 14:02] LABS: NT Pro B Type Natriuretic Pept 3826 pg/mL (0-450)
[2019-07-03] MEDS: FUROsemide 10 mg/mL SDV 2mL 20 MG IVP (14:16)
[2019-07-03] MEDS: hyDRALAzine 25 mg Tablet PO (16:01)
--- NOTE | 2019-07-03 16:33 | PC.PT ---
PT note; patient adamantly declined out of bed for physical therapy evaluation, complaining of stomach pain, stated maybe tomorrow, will reattempt then
[2019-07-03 17:23] LABS: Glucose Point of Care 205 mg/dL (70-110)
[2019-07-03] MEDS: carvedilol 12.5 mg Tablet PO (17:53)
--- NOTE | 2019-07-03 18:45 | P.PN_ITS ---
Subjective Subjective: Interval history: Acute events overnight. Patient is being transferred to [facility]. On examination today patient is mildly short of breath and complaining of lower abdominal pain which gets relieved after bowel movement. Patient also complaining of mild dysuria but denies of having any nausea, vomiting, palpitations, cough. Patient is maintained saturation over 94% on 3 L nasal cannula. Medications: Reviewed: Yes Medication Review Details: Active Medications Generic Name Dose Route Start Last Admin Trade Name Freq PRN Reason Stop Dose Admin Acetaminophen 650 mg 07/01/19 08:34 Tylenol PO Q6H PRN Mild/Mod Pain Or Temp >/= 101 Hydrocodone Bitart /Acetaminophen 1 tab 07/01/19 09:53 07/02/19 08:23 Home 10-325 Mg PO 1 tab Q6H PRN Administration MODERATE PAIN Al Hydrox/Mg [place] x/Simethicone 15 ml 07/01/19 09:53 Maalox PO Q6H PRN INDIGESTION Amlodipine Besylat e 10 mg 07/01/19 10:00 07/02/19 08:24 Norvasc PO 10 mg DAILY IDALIA Administration Lipase/Protease/Am ylase 1 each 07/01/19 12:00 07/02/19 11:55 Zenpep PO 1 each TIDWM IDALIA Administration Benzocaine 1 each 07/01/19 09:59 Cepacol MUCOUS MEM Q2H PRN SORE THROAT Buspirone HCl 10 mg 07/01/19 15:00 07/02/19 08:24 Buspar PO 10 mg TID IDALIA Administration Carvedilol 6.25 mg 07/01/19 18:00 07/02/19 08:24 Coreg PO 6.25 mg BID IDALIA Administration Clopidogrel Bisulf ate 75 mg 07/01/19 10:00 07/02/19 08:24 Plavix PO 75 mg DAILY IDALIA Administration Dextrose 25 ml 07/01/19 09:53 D50w IVP ONCE PRN hypoglycemia prot ocol Protocol Dextrose 50 ml 07/01/19 09:53 D50w IVP PRN PRN hypoglycemia prot ocol Protocol Doxycycline Monohy drate 100 mg 07/01/19 18:00 07/02/19 08:22 Vibramycin PO 100 mg BID IDALIA Administration Protocol Glucagon 1 mg 07/01/19 09:53 Glucagen IM ONCE PRN Adult Acute Hypog lycemia Prot. Protocol Guaifenesin 600 mg 07/01/19 18:00 07/02/19 08:22 Mucinex PO 600 mg BID IDALIA Administration Heparin Sodium (Be ef Lung) 5,000 unit 07/01/19 10:00 07/02/19 09:38 Heparin SUBCUT 5,000 unit Q12H IDALIA Administration Dextrose 500 mls @ 100 mls /hr 07/01/19 09:53 D5w IV ONCE PRN Adult Acute Hypog lycemia Prot Protocol Insulin Aspart 0 unit 07/01/19 12:00 07/02/19 11:53 Novolog SUBCUT 6 unit WM&BEDTIME IDALIA Administration Protocol Insulin Glargine 5 unit 07/01/19 21:00 07/01/19 21:24 Lantus SUBCUT 5 unit BEDTIME IDALIA Administration Levalbuterol HCl 1.25 mg 07/01/19 09:58 Xopenex INHALATION Q4H.RESPIRATORY P RN SHORTNESS OF VICK TH Loperamide HCl 2 mg 07/01/19 09:53 Imodium Capsule PO QID PRN DIARRHEA Mirtazapine 30 mg 07/01/19 21:00 07/01/19 21:24 Remeron PO 30 mg BEDTIME IDALIA Administration Morphine Sulfate 2 mg 07/01/19 09:53 Morphine IVP Q4H PRN SEVERE PAIN Ondansetron HCl 4 mg 07/01/19 08:34 Zofran IVP Q6H PRN NAUSEA AND VOMITI NG HATTIE Inhibitors Allergy (Mild, Verified 07/01/19 03:59) Unknown Penicillins Allergy (Verified 07/01/19 03:59) ALGY-Swell Lip/Tongue/Throat Vitals/I&O/Wt Last Vital Signs Temp 99.1 F 07/03/19 15:03 Pulse 95 07/03/19 15:03 Resp 22 H 07/03/19 16:33 BP 121/70 07/03/19 15:03 Pulse Ox 93 07/03/19 15:03 07/03/19 07/03/19 07/03/19 06:59 14:59 22:59 Intake Total 240 / 960 360 / 360 Output Total 1 / 2 Balance 239 / 958 360 / 360 Weight last 48 hrs Weight 43.156 kg Weight 42.229 kg Physical Exam Narrative: EXAM NARRATIVE: General: No acute distress, AO x3 HEENT: PERRLA, pupils bilaterally equal and reactive Chest: Mild bilateral lower zone crackles, normal vesicular breath sounds, equal good air entry bilaterally CVS: S1-S2 regular, no murmurs, no tachycardia, no gallops, no rubs Abdomen: Soft, nontender, no organomegaly, bowel sounds present Neuro: No focal deficits, no facial deformity, AO x3, power 5/5 in all limbs Data : 07/03/19 05:29 07/03/19 05:29 A&P Assessment and plan (1) Acute exacerbation of chronic obstructive airways disease: -mild acute COPD exacerbation as evidenced by increased productive cough, worsening SOB -baseline oxygen dependent, 3 L -noted ABG with mild hypercapnia and hypoxia -monitor respiratory status -no leukocytosis, afebrile, lactic acid wnl (1.3) -Neb treatments, will use Xopenex due to tachycardia -supplemental oxygen as needed -empiric doxycycline -CXR appears unremarkable per my review -VSS; continue to monitor Status: Acute Code(s): J44.1 - Chronic obstructive pulmonary disease with (acute) exacerbation (2) Congestive heart failure: Status: Acute Qualifiers: Heart failure chronicity: chronic Heart failure type: systolic Qualifi ed Code(s): I50.22 - Chronic systolic (congestive) heart failure Code(s): I50.9 - Heart failure, unspecified (3) CKD (chronic kidney disease) stage 2, GFR 60-89 ml/min: Status: Acute Code(s): N18.2 - Chronic kidney disease, stage 2 (mild) (4) Chronic anemia: -hx of chronic macrocytic anemia; baseline Hg is around 10-11 -check folate, B12 -continue to monitor H/H Status: Acute Code(s): D64.9 - Anemia, unspecified (5) HTN (hypertension): -has known hx of HTN -hemodynamically stable currently -continue to monitor vital signs -continue oral antihypertensives Status: Acute Qualifiers: Hypertension type: essential hypertension Qualified Code(s): I10 - Essential (primary) hypertension Code(s): I10 - Essential (primary) hypertension (6) Chronic back pain: -has chronic back pain secondary to OA -resume pain meds Status: Acute Qualifiers: Back pain location: low back pain Back pain laterality: unspecified Sciatica presence: unspecified whether sciatica present Qualified Code(s): M54.5 - Low back pain; G89.29 - Other chronic pain Code(s): M54.9 - Dorsalgia, unspecified; G89.29 - Other chronic pain Additional A&P Information Acute exacerbation of COPD: At baseline patient uses 3 L nasal cannula, had no leukocytosis, had remained afebrile since admission. Continue with Xopenex every 6 hours, budesonide twice daily. Try to wean off oxygen keeping saturation over 92. CHF: BNP on admission 1132 patient has been on fluids. Patient looks mildly overloaded today. Echo from 03/2018: Shows EF of 40%, mild concentric LVH, diffuse hypokinesis, trace TR, diastolic dysfunction. Patient takes Lasix 40 mg daily at home. We will start her on 20 mg IV daily. Hypertension: Patient's blood pressure has been trending up. Losartan home dose was at hold because of worsening renal functions. Continue with home dose of amlodipine, Coreg. We will start patient on hydralazine 25 mg 3 times daily today with hydralazine 5 mg every 4 hours as needed for systolic blood pressure of more than 160 mmHg. Lower abdominal pain: We will have to rule out UTI versus enteritis though patient has remained afebrile and white count is normal. We will get CT abdomen without contrast. Patient is on doxycycline for acute exacerbation of COPD. We will switch to Levaquin which will cover for COPD exacerbation, community-acquired pneumonia, UTI. QUEENIE on CKD: Baseline creatinine around 1 but has been as high as 2.8 in the past. Creatinine worsening slightly and 1.6 today. Medical reconciliation done for nephrotoxic drugs. Check BMP daily. Could be cardiorenal syndrome so we will start her back on Lasix and monitor. -Pancreatic insufficiency, has hx of gallstone pancreatitis s/p stenting; continue pancreatic enzymes; had chronic abdominal pain and diarrhea as a result -chronic smoker; down to 1 cig/day -IDDM type II; A1c-7.0, accucheks, ISS, low dose Lantus; hypoglycemia precautions, consistent carb diet -DVT ppx with heparin -fall precautions -Dispo: home with continued services ([place]) -Code status: DNR/DNI If patient remains stable can plan to discharge tomorrow. 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
[2019-07-03 21:26] LABS: Glucose Point of Care 117 mg/dL (70-110)
[2019-07-03] MEDS: levofloxacin-dextrose 5 % 750 MG/150 ML PREMIX 150 MG IV (21:30)
[2019-07-03] MEDS: acetaminophen 325 mg Tablet 650 MG PO (22:50)
[2019-07-03] MEDS: insulin glargine 100 units/1 mL 5 UNIT SUBCUT (23:07)
[2019-07-03] MEDS: mirtazapine 30 mg Tablet PO (23:07)
[2019-07-04] VITALS (15 sets, daily range): BP systolic 86–173; BP diastolic 47–71; PULSE 84–108; RESP 16–36; TEMP 36.4–37.1; O2SAT 88–96
[2019-07-04 00:35] LABS: Glucose Point of Care 124 mg/dL (70-110)
[2019-07-04] MEDS: HYDROcodone-acetaminophen 10-325 mg Tablet 1 TAB PO ×4 (03:36→20:28)
[2019-07-04 05:42] LABS: Basophils % 0.3 %; Eosinophils % 0.5 %; Hematocrit 30.3 % (37.0-47.0); Hemoglobin 9.7 g/dL (11.5-15.3); Lymphocytes % 15.2 %; Mean Platelet Volume 9.6 fL (7.4-10.4); Monocytes # 0.6 10^3/uL (0.2-0.9); Monocytes % 8.3 %; Neutrophils % 75.4 %; Nucleated Red Blood Cells % 0 %; Platelet Count 181 10^3/cmm (130-400); Red Blood Count 3.03 10^6/uL (4.1-5.3); Red Cell Distribution Width 11.8 % (12.1-15.1); White Blood Count 6.7 10^3/uL (4.0-10.0)
[2019-07-04 06:13] LABS: Alanine Aminotransferase < 5 U/L (0-33); Albumin Level 3.2 g/dL (3.5-5.2); Alkaline Phosphatase 61 IU/L (35-105); Anion Gap 18.2 (5-19); Aspartate Amino Transferase 9 U/L (0-32); Blood Urea Nitrogen 34 mg/dL (8-23); Calcium 8.6 mg/dL (8.5-10.5); Carbon Dioxide 29 mmol/L (22-29); Chloride 91 mmol/L (98-107); Globulin 3.5 g/dL (1.3-4.6); Glucose 115 mg/dL (65-115); Potassium 4.2 mmol/L (3.5-5.1); Sodium 134 mmol/L (136-145); Total Bilirubin 0.2 mg/dL (0.15-1.2); Total Protein 6.7 g/dL (6.6-8.7)
[2019-07-04 06:35] LABS: Glucose Point of Care 127 mg/dL (70-110)
[2019-07-04 07:31] LABS: Glucose Point of Care 122 mg/dL (70-110)
[2019-07-04 07:31] LABS: Glucose Point of Care 211 mg/dL (70-110)
[2019-07-04] MEDS: budesonide 0.5 mg/2 mL Neb INHALATION ×2 (08:34→19:57)
[2019-07-04] MEDS: levalbuterol 1.25 mg/3 mL Neb INHALATION ×3 (08:34→23:10)
[2019-07-04] MEDS: amlodipine 10 mg Tablet PO (08:42)
[2019-07-04] MEDS: BuSPIRONE 10 mg Tablet PO ×2 (08:42→20:28)
[2019-07-04] MEDS: lipase-protease-amylase Capsule 1 EACH PO ×3 (08:42→18:15)
[2019-07-04] MEDS: guaiFENesin 600 mg Tablet PO ×2 (08:44→18:06)
[2019-07-04] MEDS: clopidogrel 75 mg Tablet PO (08:44)
[2019-07-04] MEDS: carvedilol 12.5 mg Tablet PO ×2 (08:44→18:06)
[2019-07-04] MEDS: sodium chloride 0.9% 1,000 ML 50 ML IV (11:03)
[2019-07-04] MEDS: heparin 5,000 unit/mL INJ 1 mL 5000 UNIT SUBCUT ×2 (11:03→22:18)
[2019-07-04 11:19] LABS: Glucose Point of Care 131 mg/dL (70-110)
[2019-07-04 11:19] LABS: Glucose Point of Care 232 mg/dL (70-110)
--- NOTE | 2019-07-04 11:22 | PC.SOCIAL ---
Pg 2 IMM Explained to pt Pg 2 IMM. Pt verbally understands & signed. Provided pt with a copy & left on pt's bedside table. Signed, dated, & timed, then placed in pt's chart.
[2019-07-04 12:59] LABS: Glucose Point of Care 186 mg/dL (70-110)
--- NOTE | 2019-07-04 14:28 | PM.PN ---
Subjective Subjective: Interval history: No acute events overnight. Patient is lying comfortably in bed. Complains of mild lower abdominal pain which is continued since yesterday. Denies of having any nausea, vomiting, fever, headache, shortness of breath, cough. Vitals/I&O/Wt Last Vital Signs Temp 98.1 F 07/04/19 11:43 Pulse 84 07/04/19 11:43 Resp 16 07/04/19 11:43 BP 87/52 07/04/19 11:43 Pulse Ox 96 07/04/19 11:43 07/03/19 07/04/19 07/04/19 22:59 06:59 14:59 Intake Total 50 / 410 480 / 890 360 / 360 Balance 50 / 410 480 / 890 360 / 360 Weight last 48 hrs Weight 42.675 kg Weight 43.156 kg Physical Exam Narrative: EXAM NARRATIVE: General: No acute distress, AO x3 HEENT: PERRLA, pupils bilaterally equal and reactive Chest: Normal vesicular breath sounds, equal good air entry bilaterally, occasional rhonchi all over the lung [place] CVS: S1-S2 regular, no murmurs, no tachycardia, no gallops, no rubs Abdomen: Soft, nontender, no organomegaly, bowel sounds present Neuro: No focal deficits, no facial deformity, AO x3, power 5/5 in all limbs Data : 07/04/19 05:32 07/04/19 05:32 A&P Assessment and plan (1) Acute exacerbation of chronic obstructive airways disease: Status: Acute Code(s): J44.1 - Chronic obstructive pulmonary disease with (acute) exacerbation (2) Congestive heart failure: Status: Acute Qualifiers: Heart failure chronicity: chronic Heart failure type: systolic Qualified Code(s): I50.22 - Chronic systolic (congestive) heart failure Code(s): I50.9 - Heart failure, unspecified (3) CKD (chronic kidney disease) stage 2, GFR 60-89 ml/min: Status: Acute Code(s): N18.2 - Chronic kidney disease, stage 2 (mild) (4) Chronic anemia: Status: Acute Code(s): D64.9 - Anemia, unspecified (5) HTN (hypertension): Status: Acute Qualifiers: Hypertension type: essential hypertension Qualified Code(s): I10 - Essential (primary) hypertension Code(s): I10 - Essential (primary) hypertension (6) Chronic back pain: Status: Acute Qualifiers: Back pain location: low back pain Back pain laterality: unspecified Sciatica presence: unspecified whether sciatica present Qualified Code(s): M54.5 - Low back pain; G89.29 - Other chronic pain Code(s): M54.9 - Dorsalgia, unspecified; G89.29 - Other chronic pain Additional A&P Information Acute exacerbation of COPD: At baseline patient uses 3 L nasal cannula, had no leukocytosis, had remained afebrile since admission. Continue with Xopenex every 6 hours as needed, ipratropium 3 times daily and budesonide twice daily. Try to wean off oxygen keeping saturation over 92. CHF: BNP on admission 1132 patient has been on fluids. Echo from 03/2018: Shows EF of 40%, mild concentric LVH, diffuse hypokinesis, trace TR, diastolic dysfunction. Euvolemic today. Creatinine mildly elevated. We will hold off any further Lasix. Hypertension: Patient's blood pressure has been trending up. Losartan home dose was at hold because of worsening renal functions. Continue with home dose of amlodipine, Coreg. Blood pressure better since hydralazine was started. Will decrease hydralazine to 25 mg twice daily today. Lower abdominal pain: CT abdomen negative for any enteritis, kidney stones, obstructive uropathy. UA still awaited. Have requested nurse for a UA as soon as possible. Bladder scan to rule out urinary retention. If urine output more than 200 will do so catheterization. Continue with Levaquin for now. Day 3 overall today after treatment. QUEENIE on CKD: Baseline creatinine around 1 but has been as high as 2.8 in the past. Creatinine worsening slightly 2.1 today. Will start on gentle hydration with normal saline 50 cc/h and monitor for fluid overload. Medical reconciliation done for nephrotoxic drugs. Check BMP daily. Could be cardiorenal syndrome so we will start her back on Lasix and monitor. Chronic anemia: Hemoglobin stable at 9.7 today. We will continue to monitor hemoglobin during the admission. -Pancreatic insufficiency, has hx of gallstone pancreatitis s/p stenting; continue pancreatic enzymes; had chronic abdominal pain and diarrhea as a result -chronic smoker; down to 1 cig/day -IDDM type II; A1c-7.0, accucheks, ISS, low dose Lantus; hypoglycemia precautions, consistent carb diet -DVT ppx with heparin -fall precautions -Dispo: home with continued HH services ([facility]) -Code status: DNR/DNI If patient remains stable can plan to discharge tomorrow. 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
--- NOTE | 2019-07-04 15:12 | PC.PT ---
PT note; patient adamantly declined 2 attempts at physical therapy evaluation and out of bed today one in a.m. and 1 in p.m.; as noted yesterday patient declined then as well, will notify physician of same, discussed with nursing as well
[2019-07-04] MEDS: ipratropium 0.5 mg/2.5 mL Neb INHALATION ×2 (15:30→19:59)
[2019-07-04 16:47] LABS: Glucose Point of Care 133 mg/dL (70-110)
[2019-07-04 16:48] LABS: Bilirubin Urine Neg (NEGATIVE); Blood Urine 2+ (Negative); Glucose Urine UA Norm (Normal); Ketones Urine Negative (Negative); Leukocyte Esterase Urine 2+ (Negative); Nitrate Urine Negative (Negative); Protein Urine 1+ (Negative); Urine Appearance Hazy (CLEAR); Urine Color Yellow (Yellow); Urobilinogen Urine Norm (Negative); pH Urine 5 (5-7)
[2019-07-04 16:56] LABS: Bacteria Urine 2+; RBC Urine 25-40 /hpf (0-2); Squamous Epithelial Cell Urine 0-4 (0-5); WBC Urine TOO NUMEROUS TO CNT /hpf (0-5)
[2019-07-04 16:57] LABS: Add Urine Culture? Yes; Mucus Urine TRACE
[2019-07-04] MEDS: acetaminophen 325 mg Tablet 650 MG PO (18:16)
[2019-07-04] MEDS: mirtazapine 30 mg Tablet PO (20:28)
[2019-07-04 20:33] LABS: Glucose Point of Care 238 mg/dL (70-110)
[2019-07-04] MEDS: insulin glargine 100 units/1 mL 5 UNIT SUBCUT (20:34)
[2019-07-05] VITALS (12 sets, daily range): BP systolic 90–131; BP diastolic 46–69; PULSE 64–98; RESP 16–26; TEMP 36.9–38.1; O2SAT 93–99
[2019-07-05 00:42] LABS: Glucose Point of Care 74 mg/dL (70-110)
[2019-07-05 00:42] LABS: Glucose Point of Care 74 mg/dL (70-110)
[2019-07-05] MEDS: sodium chloride 0.9% 1,000 ML 50 ML IV (04:23)
[2019-07-05] MEDS: HYDROcodone-acetaminophen 10-325 mg Tablet 1 TAB PO ×3 (06:35→18:26)
[2019-07-05 06:40] LABS: Glucose Point of Care 185 mg/dL (70-110)
[2019-07-05] MEDS: budesonide 0.5 mg/2 mL Neb INHALATION ×2 (08:55→20:05)
[2019-07-05] MEDS: ipratropium 0.5 mg/2.5 mL Neb INHALATION ×3 (08:55→20:05)
[2019-07-05] MEDS: levalbuterol 1.25 mg/3 mL Neb INHALATION ×2 (08:55→20:05)
[2019-07-05 09:23] LABS: Basophils % 0.2 %; Hemoglobin 9.5 g/dL (11.5-15.3); Lymphocytes # 0.6 10^3/uL (0.8-4.8); Lymphocytes % 11.9 %; Mean Corpuscular HGB Conc 31.7 g/dL (30.0-36.0); Mean Corpuscular Hemoglobin 32.2 pg (28.0-34.0); Mean Corpuscular Volume 101.7 fL (81-99); Monocytes # 0.3 10^3/uL (0.2-0.9); Neutrophils # 4.2 10^3/uL (1.8-7.7); Neutrophils % 81.5 %; Nucleated Red Blood Cells % 0 %; Platelet Count 172 10^3/cmm (130-400); Red Blood Count 2.95 10^6/uL (4.1-5.3); Red Cell Distribution Width 11.8 % (12.1-15.1); White Blood Count 5.1 10^3/uL (4.0-10.0)
[2019-07-05] MEDS: amlodipine 10 mg Tablet PO (09:36)
[2019-07-05] MEDS: carvedilol 12.5 mg Tablet PO ×2 (09:36→20:26)
[2019-07-05] MEDS: BuSPIRONE 10 mg Tablet PO ×3 (09:36→20:26)
[2019-07-05] MEDS: hyDRALAzine 25 mg Tablet PO (09:36)
[2019-07-05] MEDS: lipase-protease-amylase Capsule 1 EACH PO ×3 (09:36→17:34)
[2019-07-05] MEDS: guaiFENesin 600 mg Tablet PO ×2 (09:36→17:34)
[2019-07-05] MEDS: clopidogrel 75 mg Tablet PO (09:36)
[2019-07-05] MEDS: heparin 5,000 unit/mL INJ 1 mL 5000 UNIT SUBCUT ×2 (09:39→21:17)
[2019-07-05 10:03] LABS: Alanine Aminotransferase 6 U/L (0-33); Albumin Level 3.1 g/dL (3.5-5.2); Alkaline Phosphatase 58 IU/L (35-105); Anion Gap 17.3 (5-19); Aspartate Amino Transferase 13 U/L (0-32); Blood Urea Nitrogen 32 mg/dL (8-23); Calcium 8.3 mg/dL (8.5-10.5); Carbon Dioxide 25 mmol/L (22-29); Chloride 96 mmol/L (98-107); Globulin 3.7 g/dL (1.3-4.6); Glucose 237 mg/dL (65-115); Potassium 4.3 mmol/L (3.5-5.1); Sodium 134 mmol/L (136-145); Total Bilirubin 0.2 mg/dL (0.15-1.2); Total Protein 6.8 g/dL (6.6-8.7)
[2019-07-05 11:32] LABS: Glucose Point of Care 345 mg/dL (70-110)
--- NOTE | 2019-07-05 13:32 | P.PN_ITS ---
Subjective Subjective: Interval history: Had BS going down to 74 yesterday. Patient is lying comfortably in bed. Complains of mild lower abdominal pain which is continued since yesterday. Denies of having any nausea, vomiting, fever, headache, shortness of breath, cough. Desaturated down to mid 80s with physical therapy. Patient today feels weak. Medications: Reviewed: Yes Medication Review Details: Active Medications Generic Name Dose Route Start Last Admin Trade Name Freq PRN Reason Stop Dose Admin Acetaminophen 650 mg 07/01/19 08:34 Tylenol PO Q6H PRN Mild/Mod Pain Or Temp >/= 101 Hydrocodone Bitart /Acetaminophen 1 tab 07/01/19 09:53 07/02/19 08:23 [place] 10-325 Mg PO 1 tab Q6H PRN Administration MODERATE PAIN Al Hydrox/Mg [place] x/Simethicone 15 ml 07/01/19 09:53 Maalox PO Q6H PRN INDIGESTION Amlodipine Besylat e 10 mg 07/01/19 10:00 07/02/19 08:24 Norvasc PO 10 mg DAILY IDALIA Administration Lipase/Protease/Am ylase 1 each 07/01/19 12:00 07/02/19 11:55 Zenpep PO 1 each TIDWM IDALIA Administration Benzocaine 1 each 07/01/19 09:59 Cepacol MUCOUS MEM Q2H PRN SORE THROAT Buspirone HCl 10 mg 07/01/19 15:00 07/02/19 08:24 Buspar PO 10 mg TID IDALIA Administration Carvedilol 6.25 mg 07/01/19 18:00 07/02/19 08:24 Coreg PO 6.25 mg BID IDALIA Administration Clopidogrel Bisulf ate 75 mg 07/01/19 10:00 07/02/19 08:24 Plavix PO 75 mg DAILY IDALIA Administration Dextrose 25 ml 07/01/19 09:53 D50w IVP ONCE PRN hypoglycemia prot ocol Protocol Dextrose 50 ml 07/01/19 09:53 D50w IVP PRN PRN hypoglycemia prot ocol Protocol Doxycycline Monohy drate 100 mg 07/01/19 18:00 07/02/19 08:22 Vibramycin PO 100 mg BID IDALIA Administration Protocol Glucagon 1 mg 07/01/19 09:53 Glucagen IM ONCE PRN Adult Acute Hypog lycemia Prot. Protocol Guaifenesin 600 mg 07/01/19 18:00 07/02/19 08:22 Mucinex PO 600 mg BID IDALIA Administration Heparin Sodium (Be ef Lung) 5,000 unit 07/01/19 10:00 07/02/19 09:38 Heparin SUBCUT 5,000 unit Q12H IDALIA Administration Dextrose 500 mls @ 100 mls /hr 07/01/19 09:53 D5w IV ONCE PRN Adult Acute Hypog lycemia Prot Protocol Insulin Aspart 0 unit 07/01/19 12:00 07/02/19 11:53 Novolog SUBCUT 6 unit WM&BEDTIME IDALIA Administration Protocol Insulin Glargine 5 unit 07/01/19 21:00 07/01/19 21:24 Lantus SUBCUT 5 unit BEDTIME IDALIA Administration Levalbuterol HCl 1.25 mg 07/01/19 09:58 Xopenex INHALATION Q4H.RESPIRATORY P RN SHORTNESS OF VICK TH Loperamide HCl 2 mg 07/01/19 09:53 Imodium Capsule PO QID PRN DIARRHEA Mirtazapine 30 mg 07/01/19 21:00 07/01/19 21:24 Remeron PO 30 mg BEDTIME IDALIA Administration Morphine Sulfate 2 mg 07/01/19 09:53 Morphine IVP Q4H PRN SEVERE PAIN Ondansetron HCl 4 mg 07/01/19 08:34 Zofran IVP Q6H PRN NAUSEA AND VOMITI NG HATTIE Inhibitors Allergy (Mild, Verified 07/01/19 03:59) Unknown Penicillins Allergy (Verified 07/01/19 03:59) ALGY-Swell Lip/Tongue/Throat Vitals/I&O/Wt Last Vital Signs Temp 99.0 F 07/05/19 11:41 Pulse 86 07/05/19 11:41 Resp 16 07/05/19 11:41 BP 94/58 07/05/19 11:41 Pulse Ox 96 07/05/19 11:41 07/04/19 07/05/19 07/05/19 22:59 06:59 14:59 Intake Total 60 / 420 926.667 / 1346.667 600 / 600 Output Total 150 / 150 1000 / 1150 Balance -90 / 270 -73.333 / 196.667 600 / 600 Weight last 48 hrs Weight 42.91 kg Weight 42.675 kg Physical Exam Narrative: EXAM NARRATIVE: General: No acute distress, AO x3 HEENT: PERRLA, pupils bilaterally equal and reactive Chest: Normal vesicular breath sounds, equal good air entry bilaterally, occasional rhonchi all over the lung [place] CVS: S1-S2 regular, no murmurs, no tachycardia, no gallops, no rubs Abdomen: Soft, nontender, no organomegaly, bowel sounds present Neuro: No focal deficits, no facial deformity, AO x3, power 5/5 in all limbs Urinary Catheter Management^: Yeung: Cath Placed During This Visit: yes Urethral Indwelling: Yes Reason for Continuing Indwelling Catheter: Acute Urinary Retention or Obstruction Urinary Catheter Date of Insertion: 07/04/19 Urinary Catheter Time of Insertion: 16:29 Data : 07/05/19 09:11 07/05/19 09:11 A&P Assessment and plan (1) Acute exacerbation of chronic obstructive airways disease: Status: Acute Code(s): J44.1 - Chronic obstructive pulmonary disease with (acute) exacerbation (2) Congestive heart failure: Status: Acute Qualifiers: Heart failure chronicity: chronic Heart failure type: systolic Qualified Code(s): I50.22 - Chronic systolic (congestive) heart failure Code(s): I50.9 - Heart failure, unspecified (3) CKD (chronic kidney disease) stage 2, GFR 60-89 ml/min: Status: Acute Code(s): N18.2 - Chronic kidney disease, stage 2 (mild) (4) Chronic anemia: -hx of chronic macrocytic anemia; baseline Hg is around 10-11 -check folate, B12 -continue to monitor H/H Status: Acute Code(s): D64.9 - Anemia, unspecified (5) HTN (hypertension): Status: Acute Qualifiers: Hypertension type: essential hypertension Qualified Code(s): I10 - Essential (primary) hypertension Code(s): I10 - Essential (primary) hypertension (6) Chronic back pain: -has chronic back pain secondary to OA -resume pain meds Status: Acute Qualifiers: Back pain location: low back pain Back pain laterality: unspecified Sciatica presence: unspecified whether sciatica present Qualified Code(s): M54.5 - Low back pain; G89.29 - Other chronic pain Code(s): M54.9 - Dorsalgia, unspecified; G89.29 - Other chronic pain Additional A&P Information UTI: Urine examination done yesterday's concerning for UTI. Patient already on levofloxacin since probably . Getting every 48 hours due to renal functions. Will de-escalate to change antibiotics as per the urine culture results. Patient remains afebrile. DC Yeung catheter. Repeat bladder scan later in the day. If bladder scan shows significant urine we will start her on Flomax and try to avoid catheterization. Acute exacerbation of COPD: At baseline patient uses 3 L nasal cannula, had no leukocytosis, had remained afebrile since admission. Continue with Xopenex every 6 hours as needed, ipratropium 3 times daily and budesonide twice daily. Try to wean off oxygen keeping saturation over 92%. Most likely will need home O2 evaluation prior to discharge. CHF: BNP on admission 1132 patient has been on fluids. Echo from 03/2018: Shows EF of 40%, mild concentric LVH, diffuse hypokinesis, trace TR, diastolic dysfunction. Euvolemic today. Hold off on any further fluids or diuresis for now. Hypertension: Blood pressure soft again. We will withhold hydralazine. Continue with amlodipine and Coreg. We will continue to monitor blood pressures. QUEENIE on CKD: Baseline creatinine around 1 but has been as high as 2.8 in the past. Creatinine improving again today. 1.7. Most likely I got elevated due to dehydration from IV Lasix. Patient is euvolemic. We will hold off any further diuresis and IV fluids and monitor BMP daily. Medical reconciliation done for nephrotoxic drugs. Check BMP daily. Chronic anemia: Hemoglobin stable at 9.7 today. We will continue to monitor hemoglobin during the admission. 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
[2019-07-05 17:06] LABS: Glucose Point of Care 140 mg/dL (70-110)
[2019-07-05] MEDS: mirtazapine 30 mg Tablet PO (20:26)
[2019-07-05 20:43] LABS: Glucose Point of Care 277 mg/dL (70-110)
[2019-07-05] MEDS: insulin glargine 100 units/1 mL 5 UNIT SUBCUT (21:17)
[2019-07-05] MEDS: levofloxacin-dextrose 5 % 750 MG/150 ML PREMIX 150 MG IV (21:21)
[2019-07-06] VITALS (12 sets, daily range): BP systolic 107–145; BP diastolic 54–72; PULSE 77–91; RESP 16–19; TEMP 36.6–37.2; O2SAT 95–99
[2019-07-06] MEDS: HYDROcodone-acetaminophen 10-325 mg Tablet 1 TAB PO ×4 (01:00→20:44)
--- NOTE | 2019-07-06 01:52 | PC.NURSE ---
notified nurse and turned pt. skin redness is on her bottom on the tailbone.
[2019-07-06 05:46] LABS: Eosinophils % 0.7 %; Hematocrit 26.5 % (37.0-47.0); Hemoglobin 8.5 g/dL (11.5-15.3); Lymphocytes % 17.6 %; Mean Corpuscular HGB Conc 32.1 g/dL (30.0-36.0); Mean Corpuscular Hemoglobin 32.2 pg (28.0-34.0); Mean Corpuscular Volume 100.4 fL (81-99); Mean Platelet Volume 9.9 fL (7.4-10.4); Monocytes # 0.4 10^3/uL (0.2-0.9); Monocytes % 7.5 %; Neutrophils # 4.1 10^3/uL (1.8-7.7); Neutrophils % 73.7 %; Nucleated Red Blood Cells % 0 %; Platelet Count 173 10^3/cmm (130-400); Red Blood Count 2.64 10^6/uL (4.1-5.3); Red Cell Distribution Width 11.8 % (12.1-15.1); White Blood Count 5.5 10^3/uL (4.0-10.0)
[2019-07-06 06:12] LABS: Alanine Aminotransferase < 5 U/L (0-33); Alkaline Phosphatase 58 IU/L (35-105); Anion Gap 13.7 (5-19); Aspartate Amino Transferase 11 U/L (0-32); Blood Urea Nitrogen 36 mg/dL (8-23); Calcium 8.7 mg/dL (8.5-10.5); Carbon Dioxide 31 mmol/L (22-29); Chloride 99 mmol/L (98-107); Globulin 3.2 g/dL (1.3-4.6); Glucose 80 mg/dL (65-115); Potassium 4.7 mmol/L (3.5-5.1); Sodium 139 mmol/L (136-145); Total Bilirubin 0.2 mg/dL (0.15-1.2); Total Protein 6.2 g/dL (6.6-8.7)
[2019-07-06 06:40] LABS: Glucose Point of Care 92 mg/dL (70-110)
[2019-07-06] MEDS: amlodipine 10 mg Tablet PO (08:14)
[2019-07-06] MEDS: carvedilol 12.5 mg Tablet PO ×2 (08:14→20:44)
[2019-07-06] MEDS: clopidogrel 75 mg Tablet PO (08:14)
[2019-07-06] MEDS: BuSPIRONE 10 mg Tablet PO ×3 (08:14→20:44)
[2019-07-06] MEDS: lipase-protease-amylase Capsule 1 EACH PO ×3 (08:14→17:17)
[2019-07-06] MEDS: guaiFENesin 600 mg Tablet PO (08:14)
[2019-07-06] MEDS: heparin 5,000 unit/mL INJ 1 mL 5000 UNIT SUBCUT ×2 (08:15→21:15)
[2019-07-06] MEDS: ipratropium 0.5 mg/2.5 mL Neb INHALATION ×3 (09:13→23:24)
[2019-07-06] MEDS: budesonide 0.5 mg/2 mL Neb INHALATION ×2 (09:13→19:24)
[2019-07-06] MEDS: levalbuterol 1.25 mg/3 mL Neb INHALATION (09:13)
--- NOTE | 2019-07-06 11:45 | PC.SOCIAL ---
IMM Updated Page 2 of IMM updated and given to patient. Initialed, dated, and timed and placed back in chart.
[2019-07-06 12:09] LABS: Glucose Point of Care 113 mg/dL (70-110)
--- NOTE | 2019-07-06 14:10 | XR_ITS ---
WS: [id number] XR chest 1V portable [id number] REASON FOR EXAM: chf,pna FINDINGS: Comparisons were made to July 03, 2019. The course interstitial reticular pattern is now seen throughout both lung cedillo somewhat similar to the previous exam. The heart is not enlarged there is arteriosclerotic changes in the arch of the aorta. The hilum and apices are normal. The lung cedillo are hyper aerated with flattening's of the hemidiaphragms. XR/XR chest 1V portable [id number] IMPRESSION: Chronic obstructive pulmonary disease with interstitial fibrosis. Arteriosclerotic changes of the arch of the aorta.
--- NOTE | 2019-07-06 14:15 | P.PN_ITS ---
Subjective Subjective: Interval history: No acute events overnight. Had a T-max of 100.6 at around 8 PM last night. Patient had a lot of questions for the provider which will answer to the best po ssible capability. Patient was concerned that her hydrocodone at home is every 8 hour and she was assured that for now she is getting it every 6 hours as needed, patient was concerned and wanted Yeung catheter placed back in for which she was told that prolonged respiration can lead to more worsening infections and it was also explained to her that her lower abdominal pain is most likely due to UTI and CT abdomen which was done few days ago was negative for any GI acute pathology. Patient was advised and counseled to sit up in chair for as long as possible and to work with physical therapy to which she continues to decline stating that she is feeling weak. On examination patient is on 4 L nasal cannula saturating more than 92% and states she is not short of breath, does not have a cough denies of having nausea, vomiting any diarrhea. Patient is concerned about her abdominal pain. Medications: Reviewed: Yes Medication Review Details: Active Medications Generic Name Dose Route Start Last Admin Trade Name Freq PRN Reason Stop Dose Admin Acetaminophen 650 mg 07/01/19 08:34 Tylenol PO Q6H PRN Mild/Mod Pain Or Temp >/= 101 Hydrocodone Bitart /Acetaminophen 1 tab 07/01/19 09:53 07/02/19 08:23 [place] 10-325 Mg PO 1 tab Q6H PRN Administration MODERATE PAIN Al Hydrox/Mg [place] x/Simethicone 15 ml 07/01/19 09:53 Maalox PO Q6H PRN INDIGESTION Amlodipine Besylat e 10 mg 07/01/19 10:00 07/02/19 08:24 Norvasc PO 10 mg DAILY IDALIA Administration Lipase/Protease/Am ylase 1 each 07/01/19 12:00 07/02/19 11:55 Zenpep PO 1 each TIDWM IDALIA Administration Benzocaine 1 each 07/01/19 09:59 Cepacol MUCOUS MEM Q2H PRN SORE THROAT Buspirone HCl 10 mg 07/01/19 15:00 07/02/19 08:24 Buspar PO 10 mg TID IDALIA Administration Carvedilol 6.25 mg 07/01/19 18:00 07/02/19 08:24 Coreg PO 6.25 mg BID IDALIA Administration Clopidogrel Bisulf ate 75 mg 07/01/19 10:00 07/02/19 08:24 Plavix PO 75 mg DAILY IDALIA Administration Dextrose 25 ml 07/01/19 09:53 D50w IVP ONCE PRN hypoglycemia prot ocol Protocol Dextrose 50 ml 07/01/19 09:53 D50w IVP PRN PRN hypoglycemia prot ocol Protocol Doxycycline Monohy drate 100 mg 07/01/19 18:00 07/02/19 08:22 Vibramycin PO 100 mg BID IDALIA Administration Protocol Glucagon 1 mg 07/01/19 09:53 Glucagen IM ONCE PRN Adult Acute Hypog lycemia Prot. Protocol Guaifenesin 600 mg 07/01/19 18:00 07/02/19 08:22 Mucinex PO 600 mg BID IDALIA Administration Heparin Sodium (Be ef Lung) 5,000 unit 07/01/19 10:00 07/02/19 09:38 Heparin SUBCUT 5,000 unit Q12H IDALIA Administration Dextrose 500 mls @ 100 mls /hr 07/01/19 09:53 D5w IV ONCE PRN Adult Acute Hypog lycemia Prot Protocol Insulin Aspart 0 unit 07/01/19 12:00 07/02/19 11:53 Novolog SUBCUT 6 unit WM&BEDTIME IDALIA Administration Protocol Insulin Glargine 5 unit 07/01/19 21:00 07/01/19 21:24 Lantus SUBCUT 5 unit BEDTIME IDALIA Administration Levalbuterol HCl 1.25 mg 07/01/19 09:58 Xopenex INHALATION Q4H.RESPIRATORY P RN SHORTNESS OF VICK TH Loperamide HCl 2 mg 07/01/19 09:53 Imodium Capsule PO QID PRN DIARRHEA Mirtazapine 30 mg 07/01/19 21:00 07/01/19 21:24 Remeron PO 30 mg BEDTIME IDALIA Administration Morphine Sulfate 2 mg 07/01/19 09:53 Morphine IVP Q4H PRN SEVERE PAIN Ondansetron HCl 4 mg 07/01/19 08:34 Zofran IVP Q6H PRN NAUSEA AND VOMITI NG HATTIE Inhibitors Allergy (Mild, Verified 07/01/19 03:59) Unknown Penicillins Allergy (Verified 07/01/19 03:59) ALGY-Swell Lip/Tongue/Throat Vitals/I&O/Wt Last Vital Signs Temp 98.9 F 07/06/19 11:53 Pulse 77 07/06/19 11:53 Resp 16 07/06/19 11:53 BP 109/72 07/06/19 11:53 Pulse Ox 98 07/06/19 11:53 07/05/19 07/06/19 07/06/19 22:59 06:59 14:59 Intake Total 100 / 700 120 / 120 Output Total 550 / 550 Balance -450 / 150 120 / 120 Weight last 48 hrs Weight 42.502 kg Weight 42.91 kg Physical Exam Narrative: EXAM NARRATIVE: General: No acute distress, AO x3 HEENT: PERRLA, pupils bilaterally equal and reactive Chest: Normal vesicular breath sounds, equal good air entry bilaterally, occasional rhonchi all over the lung ced[place] CVS: S1-S2 regular, no murmurs, no tachycardia, no gallops, no rubs Abdomen: Soft, nontender, no organomegaly, bowel sounds present Neuro: No focal deficits, no facial deformity, AO x3, power 5/5 in all limbs Urinary Catheter Management^: Yeung: Cath Placed During This Visit: yes Urethral Indwelling: Yes Reason for Continuing Indwelling Catheter: Acute Urinary Retention or Obstruction Urinary Catheter Date of Insertion: 07/04/19 Urinary Catheter Time of Insertion: 16:29 Data : 07/06/19 05:10 07/06/19 05:10 Micro: Microbiology 07/04/19 16:00 Urine Culture - Preliminary Urine,Clean Catch Gram Negative Rods 07/01/19 04:54 Blood Culture - Final Blood NO GROWTH AFTER 5 DAYS 07/01/19 04:59 Blood Culture - Final Blood NO GROWTH AFTER 5 DAYS A&P Assessment and plan (1) Acute exacerbation of chronic obstructive airways disease: Status: Acute Code(s): J44.1 - Chronic obstructive pulmonary disease with (acute) exacerbation (2) Congestive heart failure: Status: Acute Qualifiers: Heart failure chronicity: chronic Heart failure type: systolic Qualified Code(s): I50.22 - Chronic systolic (congestive) heart failure Code(s): I50.9 - Heart failure, unspecified (3) CKD (chronic kidney disease) stage 2, GFR 60-89 ml/min: Status: Acute Code(s): N18.2 - Chronic kidney disease, stage 2 (mild) (4) Chronic anemia: -hx of chronic macrocytic anemia; baseline Hg is around 10-11 -check folate, B12 -continue to monitor H/H Status: Acute Code(s): D64.9 - Anemia, unspecified (5) HTN (hypertension): Status: Acute Qualifiers: Hypertension type: essential hypertension Qualified Code(s): I10 - Essential (primary) hypertension Code(s): I10 - Essential (primary) hypertension (6) Chronic back pain: -has chronic back pain secondary to OA -resume pain meds Status: Acute Qualifiers: Back pain location: low back pain Back pain laterality: unspecified Sciatica presence: unspecified whether sciatica present Qualified Code(s): M54.5 - Low back pain; G89.29 - Other chronic pain Code(s): M54.9 - Dorsalgia, unspecified; G89.29 - Other chronic pain Additional A&P Information UTI: Urine examination done yesterday's concerning for UTI. Patient already on levofloxacin since probably . Getting every 48 hours due to renal functions. Till now has received 2 doses. Will de-escalate to change antibiotics as per the urine culture results. Patient remains afebrile. DC Yeung catheter. Repeat bladder scan today. Acute exacerbation of COPD: At baseline patient uses 3 L nasal cannula, had no leukocytosis, had remained afebrile since admission. Oxygen requirement has increased little bit today. Most likely due to atelectasis. Continue with Xopenex every 6 hours as needed, ipratropium 3 times daily and budesonide twice daily. Try to wean off oxygen keeping saturation over 92%. Incentive spirometry. Most likely will need home O2 evaluation prior to discharge. CHF: BNP on admission 1132 patient has been on fluids. Echo from 03/2018: Shows EF of 40%, mild concentric LVH, diffuse hypokinesis, trace TR, diastolic dysfunction. Euvolemic today. Hold off on any further fluids or diuresis for now. Repeat proBNP, portable chest x-ray. Hypertension: Blood pressure stable. We will withhold hydralazine. Continue with amlodipine and Coreg. We will continue to monitor blood pressures. QUEENIE on CKD: Baseline creatinine around 1 but has been as high as 2.8 in the past. Creatinine 1.9 today. Patient is euvolemic. We will hold off any further diuresis and IV fluids and monitor BMP daily. Medical reconciliation done for nephrotoxic drugs. Check BMP daily. Chronic anemia: Hemoglobin 8.5 today. Check iron panel. Vitamin B12 and folate level checked earlier in the admission were within normal limits. If iron panel suggestive of iron deficiency anemia will start on Venofer. Continue to monitor hemoglobin daily. If hemoglobin falls below 8 or if patient continues to remain symptomatic we will transfuse her 1 unit. We will hold off for now. Pancreatic insufficiency, has hx of gallstone pancreatitis s/p stenting; continue pancreatic enzymes; had chronic abdominal pain and diarrhea as a result -chronic smoker; down to 1 cig/day -IDDM type II; A1c-7.0, accucheks, ISS, low dose Lantus; hypoglycemia precautions, consistent carb diet -DVT ppx with heparin -fall precautions -Dispo: Due to severe deconditioning, weakness patient would benefit for SNF placement for little bed. Patient is agreeable to the same. She wants the provider to discuss with her daughter regarding the placement. I tried calling her daughter Ms. Mccallum on [phone] but was not able to get through so have left message. -Code status: DNR/DNI Out of bed to chair Attestations Medical Necessity Statement*: UTI Time Spent in Patient Care: Greater than 35 minutes (>than 50% of time spent in counselling and/or direct pt care on unit) . 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
[2019-07-06 15:13] LABS: Iron 24 ug/dL (37-145); NT Pro B Type Natriuretic Pept 784 pg/mL (0-450); Percent Saturation 16.2 % (20-50); Thyroid Stimulating Hormone 1.38 uIU/mL (0.27-4.20); Total Iron Binding Capacity 148 mcg/dl; Unsaturated Iron Binding 124 ug/dL (112-347)
[2019-07-06 16:31] LABS: Glucose Point of Care 191 mg/dL (70-110)
[2019-07-06] MEDS: mirtazapine 30 mg Tablet PO (20:44)
[2019-07-06 20:52] LABS: Glucose Point of Care 204 mg/dL (70-110)
[2019-07-06] MEDS: insulin glargine 100 units/1 mL 5 UNIT SUBCUT (21:16)
[2019-07-06] MEDS: acetaminophen 325 mg Tablet 650 MG PO (22:12)
[2019-07-07] VITALS (8 sets, daily range): BP systolic 107–142; BP diastolic 61–70; PULSE 74–98; RESP 14–24; TEMP 36.7–37.2; O2SAT 94–100
[2019-07-07 03:53] LABS: Basophils % 0.2 %; Eosinophils # 0.1 10^3/uL (0.0-0.8); Eosinophils % 1.7 %; Hematocrit 26.4 % (37.0-47.0); Hemoglobin 8.4 g/dL (11.5-15.3); Lymphocytes # 1.1 10^3/uL (0.8-4.8); Lymphocytes % 17.6 %; Mean Corpuscular HGB Conc 31.8 g/dL (30.0-36.0); Mean Corpuscular Hemoglobin 32.1 pg (28.0-34.0); Mean Corpuscular Volume 100.8 fL (81-99); Mean Platelet Volume 10.5 fL (7.4-10.4); Monocytes # 0.5 10^3/uL (0.2-0.9); Monocytes % 7.9 %; Neutrophils # 4.7 10^3/uL (1.8-7.7); Nucleated Red Blood Cells % 0 %; Platelet Count 180 10^3/cmm (130-400); Red Blood Count 2.62 10^6/uL (4.1-5.3); Red Cell Distribution Width 11.9 % (12.1-15.1); White Blood Count 6.5 10^3/uL (4.0-10.0)
[2019-07-07 04:02] LABS: Alanine Aminotransferase < 5 U/L (0-33); Albumin Level 2.9 g/dL (3.5-5.2); Alkaline Phosphatase 56 IU/L (35-105); Anion Gap 13.7 (5-19); Aspartate Amino Transferase 11 U/L (0-32); Blood Urea Nitrogen 30 mg/dL (8-23); Carbon Dioxide 28 mmol/L (22-29); Chloride 102 mmol/L (98-107); Globulin 3.9 g/dL (1.3-4.6); Glucose 122 mg/dL (65-115); Potassium 4.7 mmol/L (3.5-5.1); Sodium 139 mmol/L (136-145); Total Bilirubin 0.2 mg/dL (0.15-1.2); Total Protein 6.8 g/dL (6.6-8.7)
[2019-07-07 04:28] LABS: Slide Review Slide Review Perform
[2019-07-07 06:24] LABS: Glucose Point of Care 139 mg/dL (70-110)
[2019-07-07] MEDS: BuSPIRONE 10 mg Tablet PO ×2 (08:16→14:35)
[2019-07-07] MEDS: amlodipine 10 mg Tablet PO (08:16)
[2019-07-07] MEDS: clopidogrel 75 mg Tablet PO (08:16)
[2019-07-07] MEDS: pantoprazole DR 40 mg Tablet PO (08:16)
[2019-07-07] MEDS: carvedilol 12.5 mg Tablet PO (08:16)
[2019-07-07] MEDS: lipase-protease-amylase Capsule 1 EACH PO ×2 (08:16→11:53)
[2019-07-07] MEDS: HYDROcodone-acetaminophen 10-325 mg Tablet 1 TAB PO ×2 (08:19→14:35)
[2019-07-07] MEDS: heparin 5,000 unit/mL INJ 1 mL 5000 UNIT SUBCUT (09:12)
[2019-07-07 11:42] LABS: Glucose Point of Care 163 mg/dL (70-110)
--- NOTE | 2019-07-07 15:03 | PM.DCS ---
Discharge Providers Date of Admission: 07/01/19 05:59 Date of Discharge: July 07, 2019 Attending Provider at Admission: Yumiko Mooney MD Attending Provider at Discharge: Carlos Enriquez MD Diagnoses at Discharge Discharge Diagnosis (1) Acute exacerbation of chronic obstructive airways disease: Status: Acute (2) Congestive heart failure: Status: Acute Qualifiers: Heart failure chronicity: chronic Heart failure type: systolic Qualified Code(s): I50.22 - Chronic systolic (congestive) heart failure (3) CKD (chronic kidney disease) stage 2, GFR 60-89 ml/min: Status: Acute (4) Chronic anemia: Status: Acute (5) HTN (hypertension): Status: Acute Qualifiers: Hypertension type: essential hypertension Qualified Code(s): I10 - Essential (primary) hypertension (6) Chronic back pain: Status: Acute Qualifiers: Back pain location: low back pain Back pain laterality: unspecified Sciatica presence: unspecified whether sciatica present Qualified Code(s): M54.5 - Low back pain; G89.29 - Other chronic pain Reason for Visit Reason for Visit: Reason For Visit: Worsening SOB Hospital Course Discharge Summary: Shanita Canales is a 78 year old female with PMHx of Oxygen-dependent COPD, HTN, Chronic systolic CHF, CKD stage 2-3, IDDM type II, Pancreatic insufficiency, Chronic smoker, presents for evaluation of acutely worsening SOB x 2 days along with increased productive cough with clear sputum. She has a baseline oxygen requirement of 3 L NC which she reports compliance with. She is a chronic smoker though has cut down considerably to 1 cig/day. She denies fever/chills, sick contacts, nausea/vomiting, chest pain/tightness. She has chronic abdominal pain and diarrhea which she attributes to hx of gallstone pancreatitis with intervention and is on pancreatic enzymes. She has a prior hx of intubation in 2018. Workup in ED shows no leukocytosis, mild anemia with hg of 9.7, Cr of 1.4, BG of 219, ABG showing mild hypercapnia and hypoxia, BNP-1132, Mg-1.4, lactic acid-1.3. CXR report is pending but per my review is unremarkable. She received IV magnesium replacement, 40 mg of IV Lasix, NS while in ED. Despite elevated BNP she does not appear clinically fluid overloaded though this could also be secondary to slight increase in renal function as well. Patient was admitted because of acute COPD exacerbation causing her to have hypercapnia and hypoxic respiratory failure. Patient was treated with nebulization and oxygen supplementation. She did remarkably well with the medication and improved after which she was transferred to the floor. Being on the floor she complained of lower abdominal pain for which CT abdomen was done which ruled out any enteritis, obstructive uropathy but her UA was concerning for UTI so she was started on levofloxacin. Patient's kidney functions were fluctuating which is most likely due to frequent urinary retention for which now patient has a Yeung catheter. Please try to remove Yeung in 3 days and do bladder scan daily. Patient is to follow-up with Dr. Sánchez as an outpatient once antibiotic course for UTI is completed for acute urinary retention during this hospitalization leading her to have deranged renal functions. Patient's creatinine has been fluctuating but has remained stable for last 48 hours. Her creatinine in the past has gone as high as 2.8 and at present it is 2.0. On reviewing the chart it seems patient is most euvolemic when her creatinine functions are between 1.8?2.0. Patient was fairly weak and was not able to work well with physical therapy so given her severe deconditioning and generalized weakness patient and patient's daughter Ms. Byrne was recommended for patient to go to subacute rehab for further rehabilitation. Patient agreed for SNF placement so is been discharged hemodynamically stable condition. Physical Exam Narrative: EXAM NARRATIVE: General: No acute distress, AO x3 HEENT: PERRLA, pupils bilaterally equal and reactive Chest: Normal vesicular breath sounds, equal good air entry bilaterally, occasional rhonchi all over the lung [place] CVS: S1-S2 regular, no murmurs, no tachycardia, no gallops, no rubs Abdomen: Soft, nontender, no organomegaly, bowel sounds present Neuro: No focal deficits, no facial deformity, AO x3, power 5/5 in all limbs Urinary Catheter Management^: Yeung: Cath Placed During This Visit: yes Urethral Indwelling: Yes Reason for Continuing Indwelling Catheter: Acute Urinary Retention or Obstruction Urinary Catheter Date of Insertion: 07/06/19 Urinary Catheter Time of Insertion: 17:05 Discharge Data Data Completed and Pending: Completed Studies During Hospitalization Category Date Time Status CT abdomen pelvis wo con [id number] Rout ine Cat Scan 07/03/19 13:11 Completed XR chest 1V matias ble [id number] Routine Exams 07/03/19 12:46 Completed XR chest 1V matias ble [id number] Routine Exams 07/06/19 14:10 Completed XR chest 1V matias ble [id number] Stat Exams 07/01/19 04:02 Completed Labs from last 24 hours 07/07/19 07/07/19 07/07/19 11:25 06:04 03:27 WBC RBC Hgb Hct MCV MCH MCHC RDW Plt Count MPV Neut % (Auto) Lymph % (Auto) [place] % (Auto) Eos % (Auto) Baso % (Auto) Neut # (Auto) Lymph # (Auto) [place] # (Auto) Eos # (Auto) Baso # (Auto) Nucleated RBC % (a uto) Nucleated RBCs # Sodium 139 Potassium 4.7 Chloride 102 Carbon Dioxide 28 Anion Gap 13.7 BUN 30 H Creatinine 2.0 H Glucose 122 H POC Glucose 163 139 Calcium 9.0 Iron TIBC % Saturation Unsat Iron Binding Total Bilirubin 0.2 AST 11 ALT < 5 Alkaline Phosphata se 56 NT-Pro-B Natriuret Pep Total Protein 6.8 Albumin 2.9 L Globulin 3.9 TSH 07/07/19 07/06/19 07/06/19 03:27 20:47 16:27 WBC 6.5 RBC 2.62 L Hgb 8.4 L Hct 26.4 L MCV 100.8 H MCH 32.1 MCHC 31.8 RDW 11.9 L Plt Count 180 MPV 10.5 H Neut % (Auto) 72.0 Lymph % (Auto) 17.6 [place] % (Auto) 7.9 Eos % (Auto) 1.7 Baso % (Auto) 0.2 Neut # (Auto) 4.7 Lymph # (Auto) 1.1 [place] # (Auto) 0.5 Eos # (Auto) 0.1 Baso # (Auto) 0.0 Nucleated RBC % (a uto) 0 Nucleated RBCs # 0.0 Sodium Potassium Chloride Carbon Dioxide Anion Gap BUN Creatinine Glucose POC Glucose 204 191 Calcium Iron TIBC % Saturation Unsat Iron Binding Total Bilirubin AST ALT Alkaline Phosphata se NT-Pro-B Natriuret Pep Total Protein Albumin Globulin TSH 07/06/19 05:10 WBC RBC Hgb Hct MCV MCH MCHC RDW Plt Count MPV Neut % (Auto) Lymph % (Auto) [place] % (Auto) Eos % (Auto) Baso % (Auto) Neut # (Auto) Lymph # (Auto) [place] # (Auto) Eos # (Auto) Baso # (Auto) Nucleated RBC % (a uto) Nucleated RBCs # Sodium Potassium Chloride Carbon Dioxide Anion Gap BUN Creatinine Glucose POC Glucose Calcium Iron 24 L TIBC 148 % Saturation 16.2 L Unsat Iron Binding 124 Total Bilirubin AST ALT Alkaline Phosphata se NT-Pro-B Natriuret Pep 784 H Total Protein Albumin Globulin TSH 1.38 Vitals: Last Vital Signs Temp 98.0 F 07/07/19 11:27 Pulse 77 07/07/19 11:27 Resp 14 07/07/19 11:27 BP 107/61 07/07/19 11:27 Pulse Ox 99 07/07/19 11:27 Discharge Plan Discharge Patient Disposition: Xfer [facility] Condition: Stable Prescriptions: New Lasix 20 mg tablet 10 mg PO DAILY PRN (Reason: weight gain) Qty: 10 RF: 0 levofloxacin 500 mg tablet 500 mg PO EVERY OTHER DAY 7 Days Qty: 4 RF: 0 Continued [place]offe[place] 10-325 mg Tablet 1 tab PO QID PRN (Reason: Pain) RF: 0 Norvasc 10 mg Tablet 10 mg PO DAILY RF: 0 mirtazapine 30 mg Tablet 30 mg PO BEDTIME RF: 0 buspirone 10 mg Tablet 10 mg PO TID PRN (Reason: unknown) RF: 0 carvedilol 12.5 mg Tablet 6.25 mg PO BID RF: 0 Imodium A-D 2 mg Tablet 2 mg PO DIRECTED RF: 0 Plavix 75 mg Tablet 75 mg PO DAILY RF: 0 ProAir HFA 90 mcg/actuation Hfa Aerosol Inhaler 1 - 2 puff INHALATION Q4H PRN (Reason: Shortness Of Breath) RF: 0 cholecalciferol (vitamin D3) 1,250 mcg (50,000 unit) capsule 50,000 unit PO Q7D RF: 0 Lantus Solostar U-100 Insulin 100 unit/mL (3 mL) Insulin Pen 6 unit SUBCUT QPM RF: 0 Pancreaze 21,000-54,700- 83,900 unit Capsule,Delayed Release(Dr/Ec) 1 cap PO TID RF: 0 Novolog PenFill U-100 Insulin See Rx Instructions .ROUTE .COMPLEX RF: 0 Discontinued losartan 100 mg Tablet 100 mg PO DAILY RF: 0 Discharge Orders: Discharge Order (Routine); Ordered 07/07/19 Ordered By: Carlos Enriquez Referrals: [facility] [Outside] Jose Sánchez MD [Physician] - 2 weeks Hayden Horne MD [Family Provider] - 2 weeks Activity Restrictions/Additional Instructions: BMP in 4 days. Trial of Yeung removal in 2 days. Check bladder scan daily as patient has urinary retention. Follow-up with Dr. Sánchez for urinary retention needing Yeung catheter because of worsening renal condition. Complete antibiotic course with levofloxacin which will take every other day for next 7 days to finish a 10-day course. Discharge Attestations Time Spent in Discharge Care*: greater than 30 min Specific Discharge Activities: Specific discharge activities: educating patient, discussing with manager rn case/social workers/dc planners and evaluating patient/reviewing data Status at Discharge: Cognitive status at discharge: cognitively intact, Behavioral status at discharge: cooperative, Functional status at discharge: other assisted ambulation Overall status at discharge: patient is progressing back to baseline Quality Metrics Clinical Quality Measures During this hospital stay, did patient experience: None Coding Level of Care Code Acute Brine Supervisor for g Fwd Diagnoses Acute exacerbation of chronic obstructive airways disease J44.1 Congestive heart failure I50.22 Heart failure chronicity: chronic Heart failure type: systolic CKD (chronic kidney disease) stage 2, GFR 60-89 ml/min N18.2 Chronic anemia D64.9 HTN (hypertension) I10 Hypertension type: essential hypertension Chronic back pain M54.5; G89.29 Back pain location: low back pain Back pain laterality: unspecified Sciatica presence: unspecified whether sciatica present
--- NOTE | 2019-07-07 15:51 | PC.NURSE ---
Report called to Victorino Cason LPN at [facility], [place]
== END 2019-07-07 17:11 | disposition skilled nursing facility (03) | DRG 189 ==
LOC: ER 06:01 → ICU 06:31 → MEDSURG 07-02 20:18
PROVIDERS: Family Medicine; Admitting Provider Hospitalist; Emergency Provider Emergency Medicine; Family Provider Family Medicine; Visit Provider Student in an Organized Health Care Education/Training Program
DX: J96.01 Acute respiratory failure with hypoxia (principal); J44.1 Chronic obstructive pulmonary disease with (acute) exacerbation; N39.0 Urinary tract infection, site not specified; I13.0 Hypertensive heart and chronic kidney disease with heart failure and stage 1 through stage 4 chronic kidney disease, or unspecified chronic kidney disease; I50.22 Chronic systolic (congestive) heart failure; N17.9 Acute kidney failure, unspecified; J96.02 Acute respiratory failure with hypercapnia; R33.9 Retention of urine, unspecified; D63.1 Anemia in chronic kidney disease; E86.0 Dehydration; N18.2 Chronic kidney disease, stage 2 (mild); F17.210 Nicotine dependence, cigarettes, uncomplicated; M54.5 Low back pain; M19.90 Unspecified osteoarthritis, unspecified site; G89.29 Other chronic pain; F45.42 Pain disorder with related psychological factors; Z66 Do not resuscitate; K86.89 Other specified diseases of pancreas; Z79.51 Long term (current) use of inhaled steroids; Z79.83 Long term (current) use of bisphosphonates; Z99.81 Dependence on supplemental oxygen; Z79.899 Other long term (current) drug therapy
CPT/HCPCS: 12345; 36415; 36416; 36600; 51702; 51798; 71045; 74176; 80048; 80053; 81001; 82607; 82746; 82803; 82962; 83036; 83540; 83550; 83605; 83735; 83880; 84145; 84443; 84484; 85025; 85610; 87040; 87077; 87086; 87186; 87804; 93005; 94640; 94660; 96372; 96374; 96375; 97110; 97162; 99283; A9270; J1644; J1815; J1940; J1956; J2270; J2405; J3475; J7030; J7040; J7512; J7614; J7626; J7644

== ENCOUNTER 2019-07-08 04:31 | Emergency (ER) | payer MEDICARE, OTHER, SELFPAY ==
[2019-07-08] VITALS (8 sets, daily range): BP systolic 131–134; BP diastolic 64–80; PULSE 102–115; RESP 17–30; TEMP 36.9–37.8; O2SAT 91–94; BMI 17.5
--- NOTE | 2019-07-08 04:32 | ED_ITS ---
Entered by Mela Ayala, acting as scribe for Nir Vega MD Documented by User: Nir Vega MD 07/08/19 04:40 HPI - SOB/Dyspnea General: Chief Complaint: Shortness of Breath/Dyspnea Stated Complaint: SOB Time Seen by Provider: 07/08/19 04:33 Source: patient and EMS Mode of arrival: EMS History of Present Illness: HPI Narrative: 78 y/o female presents to the ED with complaint of increased SOB and cough. EMS reports she has been in and out of the hospital for the past week or so. Her last hospitalization was for a COPD exacerbation. EMS reports fever ( 100), tachypnea, tachycardia and hypercapnia. Pt states she is a daily smoker and wears 3L O2. Pt was living at home prior to this past week, but was sent to stay at a assisted after the most recent discharge. MD elicited complaint: shortness of breath and cough Pertinent past history: COPD Onset (ago): day(s) Timing: progressively worsening Severity: similar to previous episodes Exacerbating factors: smoke Known history of: COPD Associated symptoms: Reports cough and fever(s); Deny abdominal pain, chest pain, nausea or vomiting Related Data: Home oxygen amount: 3 liters Review of Systems Const: Reports: fever; Denies: chills, body aches or change in appetite Eyes: Denies: blurry vision or eye discomfort ENMT: Denies: throat pain or dental pain Card: Denies: chest pain Resp: Reports: shortness of breath GI: Denies: abdominal pain, nausea, vomiting or diarrhea : Denies: painful urination Musc: Denies: neck pain or back pain Skin/Breast: Denies: rash Neuro: Denies: headache Psych: Denies: depression Hong/Lymph: Denies: easy bruising All/Imm: Denies: hives PFSH ED PFSH: Social History (Updated 07/01/19 @ 09:52 by Leatha Salmon MD) Smoking and tobacco status: current every day smoker cigarettes Alcohol intake: never Lives independently: Yes Physical Exam Const: COMMON NORMALS: oriented x3 NUTRITIONAL APPEARANCE: thin HENMT: COMMON NORMALS: normocephalic and head/scalp atraumatic HEAD & SCALP: normocephalic and atraumatic Eye: COMMON NORMALS: PERRL and EOMs intact bilaterally PUPIL: Yes PERRL Neck/C-Spine: COMMON NORMALS: full ROM and supple Chest: COMMONS NORMALS: inspection of chest normal and palpation of chest normal Resp: AUSCULTATION: rales diffuse Cardio: COMMON NORMALS: regular rate, regular rhythm and no murmurs RATE: regular rate RHYTHM: regular rhythm GI: COMMON NORMALS: normal to inspection, nondistended, normoactive bowel sounds, soft to palpation, non-tender and no masses PALPATION: Yes soft Extremity: COMMON NORMALS: normal to inspection and full ROM Neuro: COMMON NORMALS: oriented x3, moves all extremities and no focal motor deficits Psych: COMMON NORMALS: mental status grossly normal, thought process normal and cooperative THOUGHT PROCESS: normal thought process Skin: COMMON NORMALS: no rashes or lesions noted and no wounds GENERAL SKIN EXAM: no rashes or lesions noted and pallor Course Vital Signs: Vital signs: Vital Signs Temperature 98.4 F 07/08/19 09:54 Pulse Rate 102 H 07/08/19 09:54 Respiratory Rate 21 H 07/08/19 09:54 Blood Pressure 131/64 07/08/19 09:54 Pulse Oximetry 94 07/08/19 09:54 MDM - SOB/Dyspnea Lab Data: Labs: Lab Results 07/08/19 07/08/19 07/08/19 Range/Units 04:40 04:40 05:10 WBC 7.5 (4.0-10.0) 10^3/ uL RBC 2.75 L (4.1-5.3) 10^6/u L Hgb 9.0 L (11.5-15.3) g/dL Hct 29.9 L (37.0-47.0) % MCV 108.7 H (81-99) fL MCH 32.7 (28.0-34.0) pg MCHC 30.1 (30.0-36.0) g/dL RDW 11.6 L (12.1-15.1) % Plt Count 183 (130-400) 10^3/c mm MPV 10.2 (7.4-10.4) fL Neut % (Auto) 71.4 % Lymph % (Auto) 19.0 % Walker % (Auto) 8.0 % Eos % (Auto) 0.7 % Baso % (Auto) 0.1 % Neut # (Auto) 5.4 (1.8-7.7) 10^3/u L Lymph # (Auto) 1.4 (0.8-4.8) 10^3/u L Walker # (Auto) 0.6 (0.2-0.9) 10^3/u L Eos # (Auto) 0.1 (0.0-0.8) 10^3/u L Baso # (Auto) 0.0 (0.0-0.1) 10^3/u L Nucleated RBC % (a uto) 0 % Nucleated RBCs # 0.0 /100WBC PT (10.5-13.3) SECO NDS INR (0.8-1.2) Specimen Type Arterial Sample Site Brachial, right ABG pH 7.40 (7.35-7.45) ABG pCO2 44.1 (35-45) mmHg ABG pO2 56.9 L (80.0-100.0) mmH g ABG HCO3 27.2 H (22-26) mmol/L ABG Base Excess 2.1 H (-2.0-2.0) mmol/ L Cedrick Test N/a Hematocrit 26.0 L (37-47) % O2 Delivery Device Nc O2 Liters/Min 3.0 % Tinner Automatic ID harkr Sodium (136-145) mmol/L Potassium (3.5-5.1) mmol/L Chloride (98-107) mmol/L Carbon Dioxide (22-29) mmol/L Anion Gap (5-19) BUN (8-23) mg/dL Creatinine (0.5-0.9) mg/dL Glucose (65-115) mg/dL Lactic Acid (0.5-2.2) mmol/L Calcium (8.5-10.5) mg/dL Total Bilirubin (0.15-1.2) mg/dL AST (0-32) U/L ALT (0-33) U/L Alkaline Phosphata se (35-105) IU/L NT-Pro-B Natriuret Pep (0-450) pg/mL Total Protein (6.6-8.7) g/dL Albumin (3.5-5.2) g/dL Globulin (1.3-4.6) g/dL Lipase (13-60) U/L Urine Color (Yellow) Urine Appearance (CLEAR) Urine pH (5-7) Ur Specific Gravit y (1.005-1.030) Urine Protein (Negative) Urine Glucose (UA) (Normal) Urine Ketones (Negative) Urine Blood (Negative) Urine Nitrate (Negative) Urine Bilirubin (NEGATIVE) Urine Urobilinogen (Negative) mg/dL Ur Leukocyte Sandra ase (Negative) Urine RBC (0-2) /hpf Urine WBC (0-5) /hpf Ur Squamous Epith Cells (0-5) Ur Transition Epit h Cell /hpf Urine Bacteria (NONE) Urine Yeast Influenza Type A A g Negative (Negative) POC Influenza B Ag Negative (Negative) 07/08/19 07/08/19 07/08/19 Range/Units 05:28 05:28 05:50 WBC (4.0-10.0) 10^3/ uL RBC (4.1-5.3) 10^6/u L Hgb (11.5-15.3) g/dL Hct (37.0-47.0) % MCV (81-99) fL MCH (28.0-34.0) pg MCHC (30.0-36.0) g/dL RDW (12.1-15.1) % Plt Count (130-400) 10^3/c mm MPV (7.4-10.4) fL Neut % (Auto) % Lymph % (Auto) % Walker % (Auto) % Eos % (Auto) % Baso % (Auto) % Neut # (Auto) (1.8-7.7) 10^3/u L Lymph # (Auto) (0.8-4.8) 10^3/u L Walker # (Auto) (0.2-0.9) 10^3/u L Eos # (Auto) (0.0-0.8) 10^3/u L Baso # (Auto) (0.0-0.1) 10^3/u L Nucleated RBC % (a uto) % Nucleated RBCs # /100WBC PT 14.70 H (10.5-13.3) SECO NDS INR 1.11 (0.8-1.2) Specimen Type Sample Site ABG pH (7.35-7.45) ABG pCO2 (35-45) mmHg ABG pO2 (80.0-100.0) mmH g ABG HCO3 (22-26) mmol/L ABG Base Excess (-2.0-2.0) mmol/ L Cedrick Test Hematocrit (37-47) % O2 Delivery Device O2 Liters/Min % Tinner Automatic ID Sodium 137 (136-145) mmol/L Potassium 5.4 H (3.5-5.1) mmol/L Chloride 100 (98-107) mmol/L Carbon Dioxide 24 (22-29) mmol/L Anion Gap 18.4 (5-19) BUN 28 H (8-23) mg/dL Creatinine 1.6 H (0.5-0.9) mg/dL Glucose 216 H (65-115) mg/dL Lactic Acid 1.4 (0.5-2.2) mmol/L Calcium 8.7 (8.5-10.5) mg/dL Total Bilirubin 0.3 (0.15-1.2) mg/dL AST 17 (0-32) U/L ALT 9 (0-33) U/L Alkaline Phosphata se 78 (35-105) IU/L NT-Pro-B Natriuret Pep 1217 H (0-450) pg/mL Total Protein 5.8 L (6.6-8.7) g/dL Albumin 3.0 L (3.5-5.2) g/dL Globulin 2.8 (1.3-4.6) g/dL Lipase (13-60) U/L Urine Color (Yellow) Urine Appearance (CLEAR) Urine pH (5-7) Ur Specific Gravit y (1.005-1.030) Urine Protein (Negative) Urine Glucose (UA) (Normal) Urine Ketones (Negative) Urine Blood (Negative) Urine Nitrate (Negative) Urine Bilirubin (NEGATIVE) Urine Urobilinogen (Negative) mg/dL Ur Leukocyte Sandra ase (Negative) Urine RBC (0-2) /hpf Urine WBC (0-5) /hpf Ur Squamous Epith Cells (0-5) Ur Transition Epit h Cell /hpf Urine Bacteria (NONE) Urine Yeast Influenza Type A A g (Negative) POC Influenza B Ag (Negative) 07/08/19 07/08/19 Range/Units 05:50 06:40 WBC (4.0-10.0) 10^3/ uL RBC (4.1-5.3) 10^6/u L Hgb (11.5-15.3) g/dL Hct (37.0-47.0) % MCV (81-99) fL MCH (28.0-34.0) pg MCHC (30.0-36.0) g/dL RDW (12.1-15.1) % Plt Count (130-400) 10^3/c mm MPV (7.4-10.4) fL Neut % (Auto) % Lymph % (Auto) % Walker % (Auto) % Eos % (Auto) % Baso % (Auto) % Neut # (Auto) (1.8-7.7) 10^3/u L Lymph # (Auto) (0.8-4.8) 10^3/u L Walker # (Auto) (0.2-0.9) 10^3/u L Eos # (Auto) (0.0-0.8) 10^3/u L Baso # (Auto) (0.0-0.1) 10^3/u L Nucleated RBC % (a uto) % Nucleated RBCs # /100WBC PT (10.5-13.3) SECO NDS INR (0.8-1.2) Specimen Type Sample Site ABG pH (7.35-7.45) ABG pCO2 (35-45) mmHg ABG pO2 (80.0-100.0) mmH g ABG HCO3 (22-26) mmol/L ABG Base Excess (-2.0-2.0) mmol/ L Cedrick Test Hematocrit (37-47) % O2 Delivery Device O2 Liters/Min % Tinner Automatic ID Sodium (136-145) mmol/L Potassium (3.5-5.1) mmol/L Chloride (98-107) mmol/L Carbon Dioxide (22-29) mmol/L Anion Gap (5-19) BUN (8-23) mg/dL Creatinine (0.5-0.9) mg/dL Glucose (65-115) mg/dL Lactic Acid (0.5-2.2) mmol/L Calcium (8.5-10.5) mg/dL Total Bilirubin (0.15-1.2) mg/dL AST (0-32) U/L ALT (0-33) U/L Alkaline Phosphata se (35-105) IU/L NT-Pro-B Natriuret Pep (0-450) pg/mL Total Protein (6.6-8.7) g/dL Albumin (3.5-5.2) g/dL Globulin (1.3-4.6) g/dL Lipase 3 L (13-60) U/L Urine Color Straw (Yellow) Urine Appearance Sl hazy (CLEAR) Urine pH 6 (5-7) Ur Specific Gravit y 1.005 (1.005-1.030) Urine Protein Neg (Negative) Urine Glucose (UA) 2+ (Normal) Urine Ketones 1+ H (Negative) Urine Blood Neg (Negative) Urine Nitrate Negative (Negative) Urine Bilirubin Neg (NEGATIVE) Urine Urobilinogen Norm (Negative) mg/dL Ur Leukocyte Sandra ase Negative (Negative) Urine RBC 0-4 H (0-2) /hpf Urine WBC 0-4 H (0-5) /hpf Ur Squamous Epith Cells Rare (0-5) Ur Transition Epit h Cell Rare /hpf Urine Bacteria Trace (NONE) Urine Yeast 3+ H Influenza Type A A g (Negative) POC Influenza B Ag (Negative) Discharge Plan Discharge Patient Disposition: Xfer [facility] Clinical Impression: Congestive heart failure, Chronic back pain, HTN (hypertension), CKD (chronic kidney disease) stage 2, GFR 60-89 ml/min, Chronic anemia, COPD (chronic obstructive pulmonary disease) Condition: Stable Discharge Orders: Discharge Order (Routine); Ordered 07/08/19 Ordered By: Tejinder Werner Referrals: Shaan Lanza MD [Primary Care Provider] - Discharge Diet: Usual diet Discharge Activity: Increase activity as tolerated Activity Restrictions/Additional Instructions: Nurse practitioner to do rounds on patient in 3 to 4 days. Repeat BMP on patient on 07/11/2019. Continue previously prescribed Levaquin. Increase Lasix to 20 mg daily Discharge Date/Time: 07/08/19 09:57 Coding Level of Care Code ED Autocad Detailer for Chg Fwd Exam Comprehensive Documented by User: Tejinder Merna Davidtheresa, 07/08/19 15:22 HPI - SOB/Dyspnea General: Chief Complaint: Shortness of Breath/Dyspnea Stated Complaint: SOB Time Seen by Provider: 07/08/19 04:33 PFSH ED PFSH: Social History (Updated 07/01/19 @ 09:52 by Leatha Salmon MD) Smoking and tobacco status: current every day smoker cigarettes Alcohol intake: never Lives independently: Yes Course ED course: Patient was recently in the hospital. I did call Dr. Gomez who at discharge her yesterday also reviewed her discharge summary. The 2 new findings and finding today is her mild hyperkalemia and a low-grade fever low- grade fever she did have while she was in the hospital but had seemed to resolve. She has a little bit of hyperkalemia she had been on losartan but that was stopped. Her BNP is up a little bit however she does not have any significant change in her chest x-ray. Her creatinine is actually better white count remains normal her lactate is normal. After long discussion with Dr. Dasilva both of us feel that she should continue the Levaquin return to the assisted. I am going to give her a dose of Lasix here as well as couple of albuterol treatments that should improve the potassium this will need to be watched as an outpatient. Vital Signs: Vital signs: Vital Signs Temperature 98.4 F 07/08/19 09:54 Pulse Rate 102 H 07/08/19 09:54 Respiratory Rate 21 H 07/08/19 09:54 Blood Pressure 131/64 07/08/19 09:54 Pulse Oximetry 94 07/08/19 09:54 MDM - SOB/Dyspnea Lab Data: Labs: Lab Results 07/08/19 07/08/19 07/08/19 Range/Units 04:40 04:40 05:10 WBC 7.5 (4.0-10.0) 10^3/ uL RBC 2.75 L (4.1-5.3) 10^6/u L Hgb 9.0 L (11.5-15.3) g/dL Hct 29.9 L (37.0-47.0) % MCV 108.7 H (81-99) fL MCH 32.7 (28.0-34.0) pg MCHC 30.1 (30.0-36.0) g/dL RDW 11.6 L (12.1-15.1) % Plt Count 183 (130-400) 10^3/c mm MPV 10.2 (7.4-10.4) fL Neut % (Auto) 71.4 % Lymph % (Auto) 19.0 % Walker % (Auto) 8.0 % Eos % (Auto) 0.7 % Baso % (Auto) 0.1 % Neut # (Auto) 5.4 (1.8-7.7) 10^3/u L Lymph # (Auto) 1.4 (0.8-4.8) 10^3/u L Walker # (Auto) 0.6 (0.2-0.9) 10^3/u L Eos # (Auto) 0.1 (0.0-0.8) 10^3/u L Baso # (Auto) 0.0 (0.0-0.1) 10^3/u L Nucleated RBC % (a uto) 0 % Nucleated RBCs # 0.0 /100WBC PT (10.5-13.3) SECO NDS INR (0.8-1.2) Specimen Type Arterial Sample Site Brachial, right ABG pH 7.40 (7.35-7.45) ABG pCO2 44.1 (35-45) mmHg ABG pO2 56.9 L (80.0-100.0) mmH g ABG HCO3 27.2 H (22-26) mmol/L ABG Base Excess 2.1 H (-2.0-2.0) mmol/ L Cedrick Test N/a Hematocrit 26.0 L (37-47) % O2 Delivery Device Nc O2 Liters/Min 3.0 % Tinner Automatic ID harkr Sodium (136-145) mmol/L Potassium (3.5-5.1) mmol/L Chloride (98-107) mmol/L Carbon Dioxide (22-29) mmol/L Anion Gap (5-19) BUN (8-23) mg/dL Creatinine (0.5-0.9) mg/dL Glucose (65-115) mg/dL Lactic Acid (0.5-2.2) mmol/L Calcium (8.5-10.5) mg/dL Total Bilirubin (0.15-1.2) mg/dL AST (0-32) U/L ALT (0-33) U/L Alkaline Phosphata se (35-105) IU/L NT-Pro-B Natriuret Pep (0-450) pg/mL Total Protein (6.6-8.7) g/dL Albumin (3.5-5.2) g/dL Globulin (1.3-4.6) g/dL Lipase (13-60) U/L Urine Color (Yellow) Urine Appearance (CLEAR) Urine pH (5-7) Ur Specific Gravit y (1.005-1.030) Urine Protein (Negative) Urine Glucose (UA) (Normal) Urine Ketones (Negative) Urine Blood (Negative) Urine Nitrate (Negative) Urine Bilirubin (NEGATIVE) Urine Urobilinogen (Negative) mg/dL Ur Leukocyte Sandra ase (Negative) Urine RBC (0-2) /hpf Urine WBC (0-5) /hpf Ur Squamous Epith Cells (0-5) Ur Transition Epit h Cell /hpf Urine Bacteria (NONE) Urine Yeast Influenza Type A A g Negative (Negative) POC Influenza B Ag Negative (Negative) 07/08/19 07/08/19 07/08/19 Range/Units 05:28 05:28 05:50 WBC (4.0-10.0) 10^3/ uL RBC (4.1-5.3) 10^6/u L Hgb (11.5-15.3) g/dL Hct (37.0-47.0) % MCV (81-99) fL MCH (28.0-34.0) pg MCHC (30.0-36.0) g/dL RDW (12.1-15.1) % Plt Count (130-400) 10^3/c mm MPV (7.4-10.4) fL Neut % (Auto) % Lymph % (Auto) % Walker % (Auto) % Eos % (Auto) % Baso % (Auto) % Neut # (Auto) (1.8-7.7) 10^3/u L Lymph # (Auto) (0.8-4.8) 10^3/u L Walker # (Auto) (0.2-0.9) 10^3/u L Eos # (Auto) (0.0-0.8) 10^3/u L Baso # (Auto) (0.0-0.1) 10^3/u L Nucleated RBC % (a uto) % Nucleated RBCs # /100WBC PT 14.70 H (10.5-13.3) SECO NDS INR 1.11 (0.8-1.2) Specimen Type Sample Site ABG pH (7.35-7.45) ABG pCO2 (35-45) mmHg ABG pO2 (80.0-100.0) mmH g ABG HCO3 (22-26) mmol/L ABG Base Excess (-2.0-2.0) mmol/ L Cedrick Test Hematocrit (37-47) % O2 Delivery Device O2 Liters/Min % Tinner Automatic ID Sodium 137 (136-145) mmol/L Potassium 5.4 H (3.5-5.1) mmol/L Chloride 100 (98-107) mmol/L Carbon Dioxide 24 (22-29) mmol/L Anion Gap 18.4 (5-19) BUN 28 H (8-23) mg/dL Creatinine 1.6 H (0.5-0.9) mg/dL Glucose 216 H (65-115) mg/dL Lactic Acid 1.4 (0.5-2.2) mmol/L Calcium 8.7 (8.5-10.5) mg/dL Total Bilirubin 0.3 (0.15-1.2) mg/dL AST 17 (0-32) U/L ALT 9 (0-33) U/L Alkaline Phosphata se 78 (35-105) IU/L NT-Pro-B Natriuret Pep 1217 H (0-450) pg/mL Total Protein 5.8 L (6.6-8.7) g/dL Albumin 3.0 L (3.5-5.2) g/dL Globulin 2.8 (1.3-4.6) g/dL Lipase (13-60) U/L Urine Color (Yellow) Urine Appearance (CLEAR) Urine pH (5-7) Ur Specific Gravit y (1.005-1.030) Urine Protein (Negative) Urine Glucose (UA) (Normal) Urine Ketones (Negative) Urine Blood (Negative) Urine Nitrate (Negative) Urine Bilirubin (NEGATIVE) Urine Urobilinogen (Negative) mg/dL Ur Leukocyte Sandra ase (Negative) Urine RBC (0-2) /hpf Urine WBC (0-5) /hpf Ur Squamous Epith Cells (0-5) Ur Transition Epit h Cell /hpf Urine Bacteria (NONE) Urine Yeast Influenza Type A A g (Negative) POC Influenza B Ag (Negative) 07/08/19 07/08/19 Range/Units 05:50 06:40 WBC (4.0-10.0) 10^3/ uL RBC (4.1-5.3) 10^6/u L Hgb (11.5-15.3) g/dL Hct (37.0-47.0) % MCV (81-99) fL MCH (28.0-34.0) pg MCHC (30.0-36.0) g/dL RDW (12.1-15.1) % Plt Count (130-400) 10^3/c mm MPV (7.4-10.4) fL Neut % (Auto) % Lymph % (Auto) % Walker % (Auto) % Eos % (Auto) % Baso % (Auto) % Neut # (Auto) (1.8-7.7) 10^3/u L Lymph # (Auto) (0.8-4.8) 10^3/u L Walker # (Auto) (0.2-0.9) 10^3/u L Eos # (Auto) (0.0-0.8) 10^3/u L Baso # (Auto) (0.0-0.1) 10^3/u L Nucleated RBC % (a uto) % Nucleated RBCs # /100WBC PT (10.5-13.3) SECO NDS INR (0.8-1.2) Specimen Type Sample Site ABG pH (7.35-7.45) ABG pCO2 (35-45) mmHg ABG pO2 (80.0-100.0) mmH g ABG HCO3 (22-26) mmol/L ABG Base Excess (-2.0-2.0) mmol/ L Cedrick Test Hematocrit (37-47) % O2 Delivery Device O2 Liters/Min % Tinner Automatic ID Sodium (136-145) mmol/L Potassium (3.5-5.1) mmol/L Chloride (98-107) mmol/L Carbon Dioxide (22-29) mmol/L Anion Gap (5-19) BUN (8-23) mg/dL Creatinine (0.5-0.9) mg/dL Glucose (65-115) mg/dL Lactic Acid (0.5-2.2) mmol/L Calcium (8.5-10.5) mg/dL Total Bilirubin (0.15-1.2) mg/dL AST (0-32) U/L ALT (0-33) U/L Alkaline Phosphata se (35-105) IU/L NT-Pro-B Natriuret Pep (0-450) pg/mL Total Protein (6.6-8.7) g/dL Albumin (3.5-5.2) g/dL Globulin (1.3-4.6) g/dL Lipase 3 L (13-60) U/L Urine Color Straw (Yellow) Urine Appearance Sl hazy (CLEAR) Urine pH 6 (5-7) Ur Specific Gravit y 1.005 (1.005-1.030) Urine Protein Neg (Negative) Urine Glucose (UA) 2+ (Normal) Urine Ketones 1+ H (Negative) Urine Blood Neg (Negative) Urine Nitrate Negative (Negative) Urine Bilirubin Neg (NEGATIVE) Urine Urobilinogen Norm (Negative) mg/dL Ur Leukocyte Sandra ase Negative (Negative) Urine RBC 0-4 H (0-2) /hpf Urine WBC 0-4 H (0-5) /hpf Ur Squamous Epith Cells Rare (0-5) Ur Transition Epit h Cell Rare /hpf Urine Bacteria Trace (NONE) Urine Yeast 3+ H Influenza Type A A g (Negative) POC Influenza B Ag (Negative) Discharge Plan Discharge Patient Disposition: [facility] Clinical Impression: Congestive heart failure, Chronic back pain, HTN (hypertension), CKD (chronic kidney disease) stage 2, GFR 60-89 ml/min, Chronic anemia, COPD (chronic obstructive pulmonary disease) Condition: Stable Discharge Orders: Discharge Order (Routine); Ordered 07/08/19 Ordered By: Tejinder Werner Referrals: Shaan Lanza MD [Primary Care Provider] - Discharge Diet: Usual diet Discharge Activity: Increase activity as tolerated Activity Restrictions/Additional Instructions: Nurse practitioner to do rounds on patient in 3 to 4 days. Repeat BMP on patient on 07/11/2019. Continue previously prescribed Levaquin. Increase Lasix to 20 mg daily Discharge Date/Time: 07/08/19 09:57 Coding Level of Care Code ED Autocad Detailer for Yaz Fwd Exam Comprehensive
--- NOTE | 2019-07-08 04:36 | XR_ITS ---
WS: [id number] XR chest 1V portable [id number] REASON FOR EXAM: cough FINDINGS: The lung cedillo are hyper aerated with flattening's of the hemidiaphragm and increased radi olucency of both lung cedillo. There is reticular pattern seen throughout both lung cedillo similar to the previous exam. No interval changes are noted. A small cavitating lesion is seen off the superior pole of the right hilum. This appears to be increased since previous exam. XR/XR chest 1V portable [id number] IMPRESSION: Increase small cavitating lesion off the superior pole the right hilum Chronic obstructive pulmonary disease with diffuse fibrosis. There is again noted arteriosclerotic changes.
--- NOTE | 2019-07-08 04:36 | ECG_ITS ---
Measurements Intervals [place] Rate: 102 P: 57 W[place]: 168 QRS: 46 QRSD: 91 T: 72 QT: 339 QTc: 442 SINUS TACHYCARDIA SEPTAL MYOCARDIAL INFARCTION , OF INDETERMINATE AGE [40+ ms Q WAVE IN V1/V2] Compared to ECG 07/01/2019 08:53:45 No significant changes Electronically Signed On 07-08-2019 16:56:41 DYNO TECHNICIAN by Isaiah Cross M.D. [email or web address]
[2019-07-08] MEDS: sodium chloride 0.9% 1,000 ML 999 ML IV (05:03)
[2019-07-08] MEDS: ipratropium-albuterol 3 mL Neb INHALATION (05:10)
[2019-07-08 05:14] LABS: Basophils % 0.1 %; Eosinophils # 0.1 10^3/uL (0.0-0.8); Eosinophils % 0.7 %; Hematocrit 29.9 % (37.0-47.0); Lymphocytes # 1.4 10^3/uL (0.8-4.8); Mean Corpuscular HGB Conc 30.1 g/dL (30.0-36.0); Mean Corpuscular Hemoglobin 32.7 pg (28.0-34.0); Mean Corpuscular Volume 108.7 fL (81-99); Mean Platelet Volume 10.2 fL (7.4-10.4); Monocytes # 0.6 10^3/uL (0.2-0.9); Neutrophils # 5.4 10^3/uL (1.8-7.7); Neutrophils % 71.4 %; Nucleated Red Blood Cells % 0 %; Platelet Count 183 10^3/cmm (130-400); Red Blood Count 2.75 10^6/uL (4.1-5.3); Red Cell Distribution Width 11.6 % (12.1-15.1); White Blood Count 7.5 10^3/uL (4.0-10.0)
[2019-07-08 05:21] LABS: ABG PCO2 44.1 mmHg (35-45); Base Excess ABG 2.1 mmol/L (-2.0-2.0); Blood Gas Sample Site Brachial, right; Blood Gas Sample Type Arterial; HCO3 ABG 27.2 mmol/L (22-26); Oxygen Device NC; PO2 ABG 56.9 mmHg (80.0-100.0)
[2019-07-08 05:37] LABS: Influenza A by IFA Negative (Negative)
[2019-07-08 05:38] LABS: Influenza B by IFA Negative (Negative)
[2019-07-08 05:48] LABS: Lactic Sepsis W/Reflex 1.4 mmol/L (0.5-2.2)
[2019-07-08 06:02] LABS: Alanine Aminotransferase 9 U/L (0-33); Alkaline Phosphatase 78 IU/L (35-105); Anion Gap 18.4 (5-19); Blood Urea Nitrogen 28 mg/dL (8-23); Calcium 8.7 mg/dL (8.5-10.5); Carbon Dioxide 24 mmol/L (22-29); Chloride 100 mmol/L (98-107); Globulin 2.8 g/dL (1.3-4.6); Glucose 216 mg/dL (65-115); NT Pro B Type Natriuretic Pept 1217 pg/mL (0-450); Potassium 5.4 mmol/L (3.5-5.1); Sodium 137 mmol/L (136-145); Total Bilirubin 0.3 mg/dL (0.15-1.2); Total Protein 5.8 g/dL (6.6-8.7)
[2019-07-08 06:07] LABS: INR 1.11 (0.8-1.2)
[2019-07-08 06:17] LABS: Aspartate Amino Transferase 17 U/L (0-32)
[2019-07-08] MEDS: morphine 4 mg/mL SDV 1 mL 2 MG IVP (06:42)
[2019-07-08 06:53] LABS: Add Urine Microscopic? YES; Bilirubin Urine Neg (NEGATIVE); Blood Urine Neg (Negative); Glucose Urine UA 2+ (Normal); Ketones Urine 1+ (Negative); Leukocyte Esterase Urine Negative (Negative); Nitrate Urine Negative (Negative); Protein Urine Neg (Negative); Specific Gravity, Urine 1.005 (1.005-1.030); Urine Appearance SL Hazy (CLEAR); Urine Color Straw (Yellow); Urobilinogen Urine Norm (Negative); pH Urine 6 (5-7)
[2019-07-08 07:00] LABS: Lipase 3 U/L (13-60)
[2019-07-08 07:04] LABS: Bacteria Urine TRACE; RBC Urine 0-4 /hpf (0-2); Squamous Epithelial Cell Urine RARE (0-5); Transitional Epi Cells Urine RARE /hpf; WBC Urine 0-4 /hpf (0-5)
[2019-07-08 07:05] LABS: Add Urine Culture? No
== END 2019-07-08 09:57 ==
PROVIDERS: Emergency Medicine; Emergency Provider Family Medicine; Family Provider Family Medicine; PCP Internal Medicine
DX: I13.0 Hypertensive heart and chronic kidney disease with heart failure and stage 1 through stage 4 chronic kidney disease, or unspecified chronic kidney disease (principal); I50.9 Heart failure, unspecified; N18.2 Chronic kidney disease, stage 2 (mild); E87.5 Hyperkalemia; M54.9 Dorsalgia, unspecified; D64.9 Anemia, unspecified; R50.9 Fever, unspecified; G89.29 Other chronic pain; J84.10 Pulmonary fibrosis, unspecified; J44.9 Chronic obstructive pulmonary disease, unspecified; F17.210 Nicotine dependence, cigarettes, uncomplicated; Z99.81 Dependence on supplemental oxygen; Z79.01 Long term (current) use of anticoagulants; Z79.51 Long term (current) use of inhaled steroids; Z79.899 Other long term (current) drug therapy
CPT/HCPCS: 12345; 36415; 36600; 71045; 80053; 81001; 82803; 83605; 83690; 83880; 85025; 85610; 87040; 87804; 93005; 94640; 96360; 96361; 96374; 96375; 99283; 99285; J2270; J7030; J7611